=== PATIENT | female | born 1955 | race Caucasian/White ===

== ENCOUNTER 2023-11-14 14:58 | Outpatient (OUT) | payer MEDICARE, SELFPAY ==
--- NOTE | 2023-11-14 | XR_ITS ---
The [address] [address] Patient Name: WARREN SUMMERS MRN: [id number] date: 1955 Sex: F Assigned Patient Location: [facility] Current Patient Location: Accession/Order Number: [id number] Exam Date: 11/14/2023 15:14 Report Date: 11/15/2023 07:07 At the request of: MADDY BARBOSA Procedure: XR foot LT min 3V PROCEDURE: XR foot LT min 3V HISTORY: LEFT FOOT PAIN ; follow-up 5th metatarsal fracture COMPARISON: XR foot left 11/08/2023 FINDINGS: BONES:Oblique fracture of distal 5th metatarsal diaphysis with 2 mm dorsal medial displacement. No intra-articular extension. No visible callus formation at this time. SOFT TISSUES:Mild lateral soft tissue swelling. EFFUSION:None visible. OTHER: Negative. XR/XR foot LT min 3V IMPRESSION: 1. Mildly displaced acute/subacute fracture of 5th metatarsal diaphysis. No appreciable change. Electronically authenticated by: MARCIA LAMB Date: 11/15/2023 07:07
== END 2023-11-14 14:59 | disposition home or self-care (01) ==
PROVIDERS: PCP Family Medicine; Visit Provider Physician Assistant
DX: M79.672 Pain in left foot (principal); S92.352D Displaced fracture of fifth metatarsal bone, left foot, subsequent encounter for fracture with routine healing
CPT/HCPCS: 73630

== ENCOUNTER 2023-12-05 09:32 | Outpatient (OUT) | payer MEDICARE, SELFPAY ==
--- NOTE | 2023-12-05 | XR_ITS ---
The [address] [address] Patient Name: WARREN SUMMERS MRN: [id number] date: 1955 Sex: F Assigned Patient Location: Current Patient Location: Accession/Order Number: [id number] Exam Date: 12/05/2023 09:41 Report Date: 12/05/2023 10:54 At the request of: CARMEN SNOW Procedure: XR foot LT min 3V PROCEDURE: XR foot LT min 3V COMPARISON: 11/14/2023 HISTORY: LEFT FOOT PAIN FINDINGS: BONES:Again demonstrated is an oblique extra-articular displaced fracture involving the distal diaphysis of the fifth metatarsal. No interval bony bridging or significant periosteal reaction. No new fracture or dislocation. Moderate enthesopathic spurring plantar calcaneus SOFT TISSUES:Negative. No visible soft tissue swelling. EFFUSION:None visible. OTHER: Negative. XR/XR foot LT min 3V IMPRESSION: Stable extra-articular oblique displaced fracture of the fifth metatarsal with no interval bony bridging Electronically authenticated by: BRITANY RAAJN Date: 12/05/2023 10:54
== END 2023-12-05 09:33 | disposition home or self-care (01) ==
LOC: EC 09:32
PROVIDERS: PCP Family Medicine; Visit Provider Podiatrist Foot & Ankle Surgery
DX: S92.352A Displaced fracture of fifth metatarsal bone, left foot, initial encounter for closed fracture (principal)
CPT/HCPCS: 73630

== ENCOUNTER 2024-01-02 13:06 | Outpatient (OUT) | payer MEDICARE, SELFPAY ==
--- NOTE | 2024-01-02 | XR_ITS ---
The [address] [address] Patient Name: WARREN SUMMERS MRN: [id number] date: 1955 Sex: F Assigned Patient Location: Current Patient Location: Accession/Order Number: [id number] Exam Date: 01/02/2024 13:07 Report Date: 01/03/2024 07:28 At the request of: CARMEN SNOW Procedure: XR foot LT min 3V PROCEDURE: XR foot LT min 3V HISTORY: LEFT FOOT PAIN ; follow-up 5th metatarsal fracture. COMPARISON: None. FINDINGS: BONES:Oblique mildly displaced fracture of the 5th metatarsal distal diaphysis without appreciable increased density at fracture line or callus formation at the margins. SOFT TISSUES:Lateral soft tissue swelling. EFFUSION:None visible. OTHER: Negative. XR/XR foot LT min 3V IMPRESSION: 1. Stable, oblique mildly displaced 5th metatarsal fracture without radiographic evidence of early bone healing. Electronically authenticated by: MARCIA LAMB Date: 01/03/2024 07:28
--- OUTSIDE RECORDS SUMMARY | 2024-01-02 13:24 | XMS_ITS | CCD ---
Author Organization [facility] Care Team Providers Care Art Glass Designer Name Role Phone Kennedy Dodson Unavailable Unavailable Unavailable Kennedy Dodson Unavailable DO Kennedy Dodson Primary Care Provider [phone] MD Min Mitchell Attending Provider DO Kennedy Dodson Attending Provider DO Kennedy Dodson Primary Care Provider MD Min Mitchell Attending Provider DO Kennedy Dodson Attending Provider DO Veronica Koehler Attending Provider Gilberto Donovan Referring Unavailable Gilberto Donovan Attending Unavailable Dr. Kennedy Dodson Primary Care Unavaila ble DO Kennedy Dodson Primary Care Provider DO Kennedy Dodson Attending Provider VERONICA KOEHLER Attending Unavailable PRATIMA POOLE Attending Unavailable PRATIMA POOLE Attending Unavailable MD Pratima Poole Other Provider Kennedy Dodson Admitting Unavailable Kennedy Dodson Primary Care Unavailable Kennedy Dodson Attending Unavailable Pratima Poole Consulting Unavailable Kennedy Dodson Admitting Unavailable Kennedy Dodson Primary Care Unavailable Kennedy Dodson Attending Unavailable Veronica Koehler Attending Unavailable Kennedy Dodson Primary Care Unavailable Veronica Koehler Admitting Unavailable DO Kennedy Dodson Primary Care Provider DO Kennedy Dodson Attending Provider MD Pratima Poole Other Provider [phone] DO Veronica Koehler Attending Provider Medications Current Medications Medication Drug Class(es) Dates Sig (Normalized) Sig (Original) aspirin 81 mg delayed release oral tablet (19 sources) Platelet Aggregation Inhibitor, Nonsteroidal Anti-inflammatory Drug Start: 10-26-2022 take 1 tablet by mouth once daily Aspirin (Aspir-81) 81 mg Tablet,Delayed Release (Dr/Ec) Active 81 MG PO Daily October 26, 2022 1:00am take 1 tablet by rae th every twenty-four hours Aspirin 81 MG 1 tablet Orally Once a day Active take 1 tablet by mouth once eduardo y Aspirin EC 81 MG Oral Tablet Delayed Release TAKE 1 TABLET DAILY. Quantity: 90 Refills: 3 Ordered: 09-Dec-2021 DO Active atorvastatin 40 mg oral tablet (19 sources) HMG-CoA Reductase Inhibitor Start: 10-27-2021 take 40 mg by mouth once daily Atorvastatin Active 40 MG PO Daily October 26, 2022 1:00am azithromycin 250 mg oral tablet (2 sources) Macrolide Antimicrobial Start: 12-16-2022 Zithromax Z-Mahesh 250 MG as directed Orally as directed Dec, Active Calcium (6 sources) Phosphate Binder, Calcium Start: 10-26-2022 take 600 mg by mouth once daily Calcium Active 600 MG PO Daily October 26, 2022 1:00am Start: 10-26-2022 take 600 mg by mouth once eduardo y Calcium Active 600 MG PO Daily October 26, 2022 12:00am calcium carbonate 1500 mg oral tablet (8 sources) take 1 tablet by rae th every twelve hours Calcium 600 MG 1 tablet with meals Orally Twice a day Active take 1 tablet by mouth every twe lve hours Calcium 600 MG 1 tablet with meals Orally Twice a day Active Calcium 600 MG T ABS TAKE 1 TABLET DAILY. Quantity: 0 Refills: 0 Ordered: 09-Dec-2021 DO Active cefuroxime 250 mg oral tablet (1 source) Cephalosporin Antibacterial take 1 tablet by mouth every twelve hours Cefuroxime Axetil 250 MG 1 tablet Orally every 12 hrs Active cholecalciferol 0.125 mg oral tablet (17 sources) Vitamin D Start: 023 take 1 tablet by mouth once daily Cholecalciferol (Vitamin D3) (Vitamin D3) 125 mcg (5,000 unit) Tablet Active 125 MCG PO Daily October 26, 2022 1:00am take 1 capsule by [facility] every twenty-four hours Vitamin D3 125 MCG (5000 UT) 1 capsule Orally Once a day Active take 1 tablet by mouth once eduardo y Vitamin D-3 125 MCG (5000 UT) Oral Tablet Take 1 tablet daily Quantity: 0 Refills: 0 Ordered: 09-Dec-2021 DO Active Chondroitin Sulfates / Glucosamine (4 sources) take 1 capsule by mouth once daily at mealtime Glucosamine-Chondroitin 166.7-133.3 MG 1 capsule with meals Orally Once a day Active Co Q 10 100 MG (9 sources) Start: 09-16-2013 take 1 capsule by mouth once daily Co Q 10 100 MG 1 capsule with a meal Orally Once a day Sep, Active Start: 09-16-2013 Cranberry (14 sources) Non-Standardized Food Allergenic Extract, Non-Standardized Plant Allergenic Extract Start: 10-26-2022 take 500 mg by mouth three times daily at mealtime Cranberry Active 500 MG PO Three times daily October 26, 2022 1:00am administer with meals Start: 10-26-2022 take 500 mg by mouth three times daily at mealtime Cranberry Active 500 MG PO Three times daily October 26, 2022 12:00am administer with meals Cranberry 500 MG as directed Orally Active Cranberry 450 MG Oral Capsule TAKE DIRECTED. Quantity: 0 Refills: 0 Ordered: 09-Dec-2021 DO Active estradiol 0.5 mg oral tablet (19 sources) Estrogen Start: 10-19-2021 take 0.5 mg by mouth once daily Estradiol Active 0.5 MG PO Daily October 26, 2022 1:00am off 5 days; repeat cycle krill oil 500 mg oral capsule (14 sources) Start: 10-26-2022 take 500 mg by mouth once daily Krill Oil Active 500 MG PO Daily October 26, 2022 1:00am Magnesium (13 sources) Start: 10-26-2022 take 200 mg by mouth once daily Magnesium Active 200 MG PO Daily October 26, 2022 1:00am Start: 10-26-2022 take 200 mg by mouth once eduardo y Magnesium Active 200 MG PO Daily October 26, 2022 12:00am Magnesium 400 MG as directed Orally Active take 1 tablet by rae th once daily Magnesium 400 MG Oral Tablet Take 1 tablet daily Quantity: 0 Refills: 0 Ordered: 09-Dec-2021 DO Active medroxyPROGESTERone acetate 2.5 mg oral tablet (19 sources) Progestin Start: 10-19-2021 take 2.5 mg by mouth once daily Medroxyprogesterone Active 2.5 MG PO Daily October 26, 2022 1:00am Vpkzcrpbqpfc-Sp-Bijd-Mine rals (Women's Multiple Vitamins) 18-0.4 mg Tablet (6 sources) Start: 10-26-2022 take 1 tablet by mouth once daily Apxulqjnycqn-Ld-Qviv-Min erals (Women's Multiple Vitamins) 18-0.4 mg Tablet Active 1 TAB PO Daily October 26, 2022 1:00am Start: 10-26-2022 take 1 tablet by rae th once daily Jtaogxyeqgkn-Ho-Lawl-Minerals (Women's Multiple Vitamins) 18-0.4 mg Tablet Active 1 TAB PO Daily October 26, 2022 12:00am olmesartan medoxomil 20 mg oral tablet (19 sources) Angiotensin 2 Receptor Nettie Start: 05-14-2018 take 20 mg by mouth once daily Olmesartan Active 20 MG PO Daily October 26, 2022 1:00am Start: 05-14-2018 take 1 tablet by rae every twelve hours Olmesartan Medoxomil 20 MG 1 tablet Orally BID for 90 days May, Active predniSONE 20 mg oral tablet (2 sources) Start: 12-16-2022 predniSONE 20 MG 1 tablet Orally BID x 5 days then daily x 5 days Dec, Active semaglutide 3 mg oral tablet (1 source) Start: 11-08-2023 Rybelsus 3 MG 1 tablet at least 30 minutes before first food, beverage or other oral medicine of the day Orally Once a day for 30 days sample provided Oct, Active spironolactone 25 mg oral tablet (19 sources) Aldosterone Antagonist Start: 10-26-2022 take 25 mg by mouth once daily Spironolactone Active 25 MG PO Daily October 26, 2022 1:00am Start: 11-02-2021 take 1 tablet by rae th twice daily Spironolactone 25 MG Oral Tablet TAKE 1 TABLET TWICE DAILY. Quantity: 0 Refills: 0 Ordered: 02-Nov-2021 DO Start : 02-Nov-2021 Active take 2 tablets by mo ut every twenty-four hours Spironolactone 25 MG 2 tablet Orally Once a day Active take 2 tablets by mo [facility] every twenty-four hours ubidecarenone 200 mg oral ca psule (10 sources) Start: 10-26-2022 Coenzyme Q10 ( Co Q-10) 200 mg Capsule Active 200 MG PO Daily October 26, 2022 1:00am CoQ-10 200 MG CA PS TAKE DIRECTED. Quantity: 0 Refills: 0 Ordered: 09-Dec-2021 DO Active Vitamin B Complex (4 sources) Vitamin B Comple x - as directed Orally Active Vitamin D3 125 MCG (5000 UT) (2 sources) take 1 capsule by mo flh once daily Vitamin D3 125 MCG (5000 UT) 1 capsule Orally Once a day Active Womens Multivitamin - (4 sources) Womens Multivita min - as directed Orally Active Zinc (6 sources) Start: 10-26-2022 take 50 mg by mouth once daily Zinc Active 50 MG PO Daily October 26, 2022 1:00am Start: 10-26-2022 take 50 mg by mouth once daily Zinc Active 50 MG PO Daily October 26, 2022 12:00am zinc gluconate 50 mg oral tablet (8 sources) take 1 tablet by rae every twenty-four hours Zinc 50 MG 1 tablet Orally Once a day Active Completed/Discontinued Medications Medication Drug Class(es) Dates Sig (Normalized) Sig (Original) methylPREDNISolone (8 sources) Corticosteroid Start: 06-03-2014 SOLU-MEDROL UP TO 40 mg May, 1 mL Multi Vitamin Oral Tablet (4 sources) take 1 tablet by mouth once daily Multi Vitamin Oral Tablet TAKE 1 TABLET DAILY. Quantity: 0 Refills: 0 Ordered: 09-Dec-2021 DO Active Problems Active Problems Problem Classification Problem Date Documented Date Episodic/Chronic Asthma (9 sources) Asthma; Translations: [Unspecified asthma, uncomplicated] Chronic Diabetes mellitus without complication (2 sources) Diabetes mellitus without complication; Translations: [Type 2 diabetes mellitus without complications] Chronic Diabetes mellitus without complication (12 sources) Hyperglycemia; Translations: [Hyperglycemia, unspecified] Onset: 11-01-2023 Episodic Disorders of lipid metabolism (17 sources) Hyperlipidemia; Translations: [Other and unspecified hyperlipidemia] Onset: 10-27-2021 Resolved: 10-27-2021 Chronic Essential hypertension (17 sources) Hypertensive disorder; Translations: [Unspecified essential hypertension] Onset: 10-27-2021 Resolved: 10-27-2021 Chronic Nutritional deficiencies (12 sources) Vitamin D deficiency; Translations: [Vitamin D deficiency, unspecified] Onset: 10-27-2021 Resolved: 10-27-2021 Chronic Other connective tissue disease (1 source) Pain in right foot; Translations: [Pain in right foot] Episodic Other connective tissue disease (1 source) Pain in left foot Episodic Other diseases of veins and lymphatics (9 sources) Peripheral venous insufficiency; Translations: [Venous insufficiency (chronic) (peripheral)] Episodic Other endocrine disorders (9 sources) Polycystic ovaries; Translations: [Polycystic ovarian syndrome] Chronic Other nutritional; endocrine; and metabolic disorders (4 sources) Obesity; Translations: [Obesity, unspecified] Chronic Other nutritional; endocrine; and metabolic disorders (4 sources) Body mass index 25-29 - overweight; Translations: [Body Mass Index 29.0-29.9, adult] Episodic Other screening for suspected conditions (not mental disorders or infectious disease) (15 sources) Electrocardiogram abnormal; Translations: [Nonspecific abnormal electrocardiogram [ECG] [EKG]] Onset: 10-27-2021 Resolved: 10-27-2021 Episodic Unclassified (1 source) Pain in left foot; Translations: [Pain in left foot] Onset: 11-08-2023 Varicose veins of lower extremity (9 sources) Pain co-occurrent and due to varicose veins of bilateral legs; Translations: [Varicose veins of bilateral lower extremities with pain] Episodic Past or Other Problems Problem Classification Problem Date Documented Da te Episodic/Chronic Unclassified (4 sources) Never smoked tobacco; Translations: [Never a smoker] Results Test Name Value Interpretation Reference Range Facility MM screening mammo BI w/CADo n 01-01-2024 MM screening mammo BI w/CAD [facility] Main [place] [id number] Mammography Report Signed Patient: Betsy Summers MR#: [id number] : 1955 Acct:[id number] Age/Sex: 68 / F ADM Date: 01/01/24 Loc: [place] Room: Type: [facility] Attending Dr: Veronica Koehler DO Copies to: Kennedy Dodson,DO Veronica Koehler DO Ordering Provider: Veronica Koehler DO Date of Service: 01/01/24 MM/MM screening mammo BI w/CAD: SCREENING CLINICAL DATA: Screening for malignancy. BILATERAL SCREENING MAMMOGRAMS - FULL FIELD DIGITAL WITH TOMOSYNTHESIS AND CAD Tomosynthesis craniocaudal and mediolateral oblique views of both breasts were obtained using low- dose digital technique. Comparison is made to prior studies from November 04, 2019 through December 27, 2022. This examination was reviewed with the aid of CAD. There are scattered fibroglandular densities. There are benign calcifications and nodularity. There are no new suspicious masses, typically malignant calcifications or architectural distortion. There has been no significant interval change. MM/MM screening mammo BI w/CAD IMPRESSION: NO MAMMOGRAPHIC EVIDENCE OF MALIGNANCY. ROUTINE FOLLOW-UP IS RECOMMENDED IN ONE YEAR. RESULT CODE: 2 Benign Findings(s) DENSITY CODE: 2 (approximately 25-50% glandular) FOLLOW UP: 1YR The false-negative rate of mammography is approximately 10-percent. Management of a palpable abnormality must be based on clinical grounds. Patient was entered into a reminder system with a target due date for the next mammogram. Impression dictated by: Gisela Whittaker M.D.01/01/2024 1:31 PM Dictation Location: [facility] Transcribed By: HYUN 01/01/24 1331 Dictated By: Gisela Whittaker MD 01/01/24 1324 Signed By: 01/01/24 1331 Normal [facility] A1C HEMOGLOBINon 11-08-2023 HbA1c (Bld) [Mass fraction] 6.7 % [employer] Other HbA1c (Bld) [Mass fraction]o n 11-08-2023 A1C [facility]OGLOBIN [facility] [employer] Other XR foot LT min 3V*on 024 XR foot LT min 3V* [facility] [place] [address] XRay Report Signed Patient: Betsy Summers MR#: [id number] : 1955 Acct:[id number] Age/Sex: 68 / F ADM Date: 11/08/23 Loc: XD Room: Type: [facility] CLI Attending Dr: Kennedy Dodson DO Copies to: Kennedy Dodson DO Ordering Provider: Kennedy Dodson DO Date of Service: 11/08/23 XR/XR ankle LT min 3V*: Left foot pain ([id number]) XR/XR foot LT min 3V*: Left foot pain LEFT ANKLE - 3 views, left foot 3 views CLINICAL HISTORY: Twisting injury 3 weeks ago now with pain fourth and fifth metatarsal area. COMPARISON: None FINDINGS: Left ankle: No focal soft tissue abnormality. Ankle mortise appears intact without acute bony process. Left foot: Soft tissue swelling is noted. Mildly displaced fracture involving the fifth metatarsal. No additional fracture is seen. Joint spaces appear maintained without bony erosions. Plantar spurring. XR/XR ankle LT min 3V* IMPRESSION: MILDLY DISPLACED FRACTURE INVOLVING THE FIFTH METATARSAL. Impression dictated by: Kathrine Moura Jr.OLeon11/08/2023 10:17 AM Dictation Location: [place] [address] Transcribed By: [facility] 11/08/23 1017 Dictated By: Kaushal Fox Jr, DO 11/08/23 1015 Signed By: 11/08/23 1017 Normal [facility] A1C with Estimated Average G [facility] 11-01-2023 Glucose [Mass/Vol] 131 mg/dL Normal [facility] Comment on above: Order Comment: Reaso n for Exam Hyperglycemia Result Comment: PERF ORMED BY: [place] [address] PATHOLOGIST PREMIUM REPRESENTATIVE ANASTASIIA BLUE M.D. Performed By: #### V [id number], TSH3, LIPID, CMP, CBC, A1C WT eA #### [address] HbA1c (Bld) [Mass fraction] 6.2 % High 4.3-5.6 [facility] Comment on above: Order Comment: Reaso n for Exam Hyperglycemia Result Comment: Incr eased risk for diabetes: 5.7 - 6.4 diabetes: >6.4 glycemic control for adults with diabetes: <7.0 Performed By: #### V [id number], TSH3, LIPID, CMP, CBC, [facility]C [facility] #### [facility] [address] Alanine aminotransferase [En zymatic activity/volume] in Serum or PlasmaOrdered By: Kennedy Dodson on 11-01-2023 ALT [Catalytic activity/Vol] 18 U/L 7-52 [facility] Albumin [Mass/volume] in Ser um or Plasma by Bromocresol green (BCG) dye binding methoOrdered By: Kennedy Dodson on 11-01-2023 Albumin BCG dye [Mass/Vol] 4.1 g/dL 3.5-5.7 [facility] Alkaline phosphatase [Enzyma tic activity/volume] in Serum or PlasmaOrdered By: Kennedy Dodson on 11-01-2023 ALP [Catalytic activity/Vol] 66 U/L 34-104 [facility] Aspartate aminotransferase [ Enzymatic activity/volume] in Serum or PlasmaOrdered By: Kennedy Dodson on 11-01-2023 AST [Catalytic activity/Vol] 19 U/L 13-39 [facility] Basophils Auto (Bld) [#/Vol] Ordered By: Kennedy Dodson on 11-01-2023 Basophils (Bld) [#/Vol] 0.0 10*3/uL 0.0-0.2 [facility] Basophils/100 WBC Auto (Bld) Ordered By: Kennedy Dodson on 11-01-2023 Basophils/100 WBC (Bld) 0.6 % . [facility] Bilirubin.total [Mass/volume ] in Serum or PlasmaOrdered By: Kennedy Dodson on 11-01-2023 Bilirubin [Mass/Vol] 0.7 mg/dL 0.3-1.0 [facility] [place] Calcium [Mass/volume] in Ser um or PlasmaOrdered By: Kennedy Dodson on 11-01-2023 Calcium [Mass/Vol] 9.2 mg/dL 8.6-10.3 [facility] Carbon dioxide, total [Moles /volume] in Serum or PlasmaOrdered By: Kennedy Dodson on 11-01-2023 CO2 [Moles/Vol] 26.2 mmol/L 21.0-31.0 [facility] Chloride [Moles/volume] in S renee or PlasmaOrdered By: Kennedy Dodson on 11-01-2023 Chloride [Moles/Vol] 106 mmol/L 98-107 [facility] [place] Cholesterol [Mass/volume] in Serum or PlasmaOrdered By: Kennedy Dodson on 11-01-2023 Cholesterol [Mass/Vol] 159 mg/dL 140-200 [facility] Comment on above: Chol less than 200 m g/dl low riskChol 201-239 mg/dl borderline riskChol 240 mg/dl and greater high risk Cholesterol in LDL Calc [Mas s/Vol]Ordered By: Kennedy Dodson on 11-01-2023 Cholesterol in LDL [Mass/Vol] 98 mg/dL 0-100 [facility] Comment on above: LDL ATP III CLASSIFI CATIONLDL less than 100 mg/dL OptimalLDL 100-129 mg/dL Near or above optimalLDL 130-159 mg/dL Borderline highLDL 160-189 mg/dL HighLDL greater than 189 mg/dL Very high Cholesterol in VLDL Calc [Ma ss/Vol]Ordered By: Kennedy Dodson on 11-01-2023 Cholesterol in VLDL [Mass/Vol] 10 mg/dL [facility] Complete Blood Count Auto Di ffon 11-01-2023 Basophils (Bld) [#/Vol] 0.0 10*3/uL Normal 0.0-0.2 [facility] Comment on above: Order Comment: Reaso n for Exam Hyperlipidemia Result Comment: PERF ORMED BY: [place] [address] PATHOLOGIST PREMIUM REPRESENTATIVE ANASTASIIA BLUE M.D. Performed By: #### V [id number], TSH3, LIPID, CMP, CBC, A1C [facility] #### [facility] [address] Basophils/100 WBC (Bld) 0.6 % Normal . [facility] Comment on above: Order Comment: Reaso n for Exam Hyperlipidemia Performed By: #### V [id number], TSH3, LIPID, CMP, CBC, A1C WTH eA #### [facility] [address] Eosinophils (Bld) [#/Vol] 0.2 10*3/uL Normal 0.0-0.45 [facility] Comment on above: Order Comment: Reaso n for Exam Hyperlipidemia Performed By: #### V [id number], TSH3, LIPID, CMP, CBC, A1C WTH eA #### [facility] [address] [place] [address] [place] Eosinophils/100 WBC (Bld) 2.6 % Normal . [facility] Comment on above: Order Comment: Reaso n for Exam Hyperlipidemia Performed By: #### V [id number], TSH3, LIPID, CMP, CBC, A1C WTH eA #### [address] Erythrocyte distribution width (RBC) [Ratio] 13.3 % Normal 11.9-15.3 [facility] Comment on above: Order Comment: Reaso n for Exam Hyperlipidemia Performed By: #### V [id number], TSH3, LIPID, CMP, CBC, A1C WTH eA #### [address] Hematocrit (Bld) [Volume fraction] 40.7 % Normal 34.0-46.4 [facility] Comment on above: Order Comment: Reaso n for Exam Hyperlipidemia Performed By: #### V [id number], TSH3, LIPID, CMP, CBC, A1C WTH eA #### [facility] [address] Hemoglobin (Bld) [Mass/Vol] 13.7 g/dL Normal 11.8-15.4 [facility] Comment on above: Order Comment: Reaso n for Exam Hyperlipidemia Performed By: #### V [id number], TSH3, LIPID, CMP, CBC, A1C WTH eA #### [address] Lymphocytes (Bld) [#/Vol] 1.6 10*3/uL Normal 1.00-4.8 [facility] Comment on above: Order Comment: Reaso n for Exam Hyperlipidemia Performed By: #### V [id number], TSH3, LIPID, CMP, CBC, A1C WTH eA #### [facility] [address] [place] [address] Lymphocytes/100 WBC (Bld) 21.6 % Normal . [facility] Comment on above: Order Comment: Reaso n for Exam Hyperlipidemia Performed By: #### V [id number], TSH3, LIPID, CMP, CBC, A1C WTH eA #### [address] MCH (RBC) [Entitic mass] 32.0 pg Normal 24.7-34.3 [facility] Comment on above: Order Comment: Reaso n for Exam Hyperlipidemia Performed By: #### V [id number], TSH3, LIPID, CMP, CBC, A1C WTH eA #### [address] MCV (RBC) [Entitic vol] 94.8 fL Normal 80-100 [facility] Comment on above: Order Comment: Reaso n for Exam Hyperlipidemia Performed By: #### V [id number], TSH3, LIPID, CMP, CBC, A1C WTH eA #### [facility] [address] [place] [address] Mean Corpuscular HGB Conc 33.8 g/dL Normal 32.0-35.0 [facility] Comment on above: Order Comment: Reaso n for Exam Hyperlipidemia Performed By: #### V [id number], TSH3, LIPID, CMP, CBC, A1C WTH e[place] #### [place] [address] [place] Monocytes (Bld) [#/Vol] 0.8 10*3/uL Normal 0.0-0.8 [facility] Comment on above: Order Comment: Reaso n for Exam Hyperlipidemia Performed By: #### V [id number], TSH3, LIPID, CMP, CBC, A1C WTH eA #### [address] Monocytes/100 WBC (Bld) 10.0 % Normal . [facility] Comment on above: Order Comment: Reaso n for Exam Hyperlipidemia Performed By: #### V [id number], TSH3, LIPID, CMP, CBC, A1C WTH eA #### [facility] [address] [place] [address] [place] Neutrophils (Bld) [#/Vol] 5.0 10*3/uL Normal 1.8-7.7 [facility] Comment on above: Order Comment: Reaso n for Exam Hyperlipidemia Performed By: #### V [id number], TSH3, LIPID, CMP, CBC, A1C WTH eA #### [facility] [address] [place] [address] [place] Neutrophils/100 WBC (Bld) 65.2 % Normal . [facility] Comment on above: Order Comment: Reaso n for Exam Hyperlipidemia Performed By: #### V [id number], TSH3, LIPID, CMP, CBC, A1C WTH eA #### [facility] [address] [place] [address] [place] NRBC% 0.0 /100{WBC} Normal 0-0.5 [facility] Comment on above: Order Comment: Reaso n for Exam Hyperlipidemia Performed By: #### V [id number], TSH3, LIPID, CMP, CBC, A1C WTH eA #### [facility] [address] [place] [address] [place] Platelet mean volume (Bld) [Entitic vol] 10.7 fL Normal 6.3-10.7 [facility] Comment on above: Order Comment: Reaso n for Exam Hyperlipidemia Performed By: #### V [id number], TSH3, LIPID, CMP, CBC, A1C WTH eA #### [facility] [address] [place] [id number] [place] Platelets (Bld) [#/Vol] 208 10*3/uL Normal 150-450 [facility] Comment on above: Order Comment: Reaso n for Exam Hyperlipidemia Performed By: #### V [id number], TSH3, LIPID, CMP, CBC, A1C WTH eA #### [facility] [address] [place] [id number] [place] RBC (Bld) [#/Vol] 4.29 10*6/uL Normal 3.60-5.00 [facility] Comment on above: Order Comment: Reaso n for Exam Hyperlipidemia Performed By: #### V [id number], TSH3, LIPID, CMP, CBC, A1C WTH eA #### [facility] [address] WBC (Bld) [#/Vol] 7.6 10*3/uL Normal 3.8-11.6 [facility] Comment on above: Order Comment: Reaso n for Exam Hyperlipidemia Performed By: #### V [id number], TSH3, LIPID, CMP, CBC, A1C WTH eA #### [facility] [address] Comprehensive Metabolic Pane risa 11-01-2023 Albumin [Mass/Vol] 4.1 g/dL Normal 3.5-5.7 [facility] Comment on above: Order Comment: Reaso n for Exam Hyperlipidemia Performed By: #### V [id number], TSH3, LIPID, CMP, CBC, A1C WTH eA #### [facility] [address] [place] [address] Albumin/Globulin [Mass ratio] 1.5 {ratio} Normal [facility] Comment on above: Order Comment: Reaso n for Exam Hyperlipidemia Performed By: #### V [id number], TSH3, LIPID, CMP, CBC, A1C WTH eA #### [address] ALP [Catalytic activity/Vol] 66 U/L Normal 34-104 [facility] Comment on above: Order Comment: Reaso n for Exam Hyperlipidemia Result Comment: PERF ORMED BY: [place] [address] PATHOLOGIST PREMIUM REPRESENTATIVE ANASTASIIA BLUE M.D. Performed By: #### V [id number], TSH3, LIPID, CMP, CBC, A1C WTH eA #### [facility] [address] [place] [address] ALT [Catalytic activity/Vol] 18 U/L Normal 7-52 [facility] Comment on above: Order Comment: Reaso n for Exam Hyperlipidemia Performed By: #### V [id number], TSH3, LIPID, CMP, CBC, A1C WTH eA #### [facility] [address] Anion gap [Moles/Vol] 11.3 mmol/L Normal 6.0-15.0 [facility] Comment on above: Order Comment: Reaso n for Exam Hyperlipidemia Performed By: #### V [id number], TSH3, LIPID, CMP, CBC, A1C WTH eA #### [facility] [address] AST [Catalytic activity/Vol] 19 U/L Normal 13-39 [facility] Comment on above: Order Comment: Reaso n for Exam Hyperlipidemia Performed By: #### V [id number], TSH3, LIPID, CMP, CBC, A1C WTH eA #### [facility] [address] Bilirubin [Mass/Vol] 0.7 mg/dL Normal 0.3-1.0 [facility] [place] Comment on above: Order Comment: Reaso n for Exam Hyperlipidemia Performed By: #### V [id number], TSH3, LIPID, CMP, CBC, A1C WTH eA #### [facility] [address] [place] [address] [place] Calcium [Mass/Vol] 9.2 mg/dL Normal 8.6-10.3 [facility] Comment on above: Order Comment: Reaso n for Exam Hyperlipidemia Performed By: #### V [id number], TSH3, LIPID, CMP, CBC, A1C WTH eA #### [facility] [address] [place] [address] [place] Chloride [Moles/Vol] 106 mmol/L Normal 98-107 [facility] [place] Comment on above: Order Comment: Reaso n for Exam Hyperlipidemia Performed By: #### V [id number], TSH3, LIPID, CMP, CBC, A1C WTH eA #### [facility] [address] CO2 [Moles/Vol] 26.2 mmol/L Normal 21.0-31.0 [facility] Comment on above: Order Comment: Reaso n for Exam Hyperlipidemia Performed By: #### V [id number], TSH3, LIPID, CMP, CBC, A1C WTH eA #### [facility] [address] Creatinine [Mass/Vol] 0.86 mg/dL Normal 0.60-1.20 [facility] Comment on above: Order Comment: Reaso n for Exam Hyperlipidemia Performed By: #### V [id number], TSH3, LIPID, CMP, CBC, A1C WTH eA #### [facility] [address] [place] [address] [place] GFR/1.73 sq M.predicted MDRD (S/P/Bld) [Vol rate/Area] mL/min/{1.73_m2} [facility] Comment on above: Order Comment: Reaso n for Exam Hyperlipidemia Performed By: #### V [id number], TSH3, LIPID, CMP, CBC, A1C WTH eA #### [facility] [address] Globulin (S) [Mass/Vol] 2.7 g/dL Normal [facility] Comment on above: Order Comment: Reaso n for Exam Hyperlipidemia Performed By: #### V [id number], TSH3, LIPID, CMP, CBC, A1C WTH eA #### [address] Glucose [Mass/Vol] 100 mg/dL Normal 70-100 [facility] Comment on above: Order Comment: Reaso n for Exam Hyperlipidemia Result Comment: [place] Glucose Reference Range is dependent on time and content of last meal. Glucose of more than 200 mg/dL in a nonstressed, ambulatory subject supports the diagnosis of Diabetes Mellitus. ADA recommended reference range Performed By: #### V [id number], TSH3, LIPID, CMP, CBC, A1C WTH eA #### [facility] [address] [place] [address] [place] Potassium [Moles/Vol] 4.5 mmol/L Normal 3.5-5.1 [facility] Comment on above: Order Comment: Reaso n for Exam Hyperlipidemia Performed By: #### V [id number], TSH3, LIPID, CMP, CBC, A1C WTH eA #### [facility] [address] [place] [id number] [place] Protein [Mass/Vol] 6.8 g/dL Normal 6.4-8.9 [facility] Comment on above: Order Comment: Reaso n for Exam Hyperlipidemia Performed By: #### V [id number], TSH3, LIPID, CMP, CBC, A1C WTH eA #### [facility] [address] [place] [id number] [place] Sodium [Moles/Vol] 139 mmol/L Normal 136-145 [facility] Comment on above: Order Comment: Reaso n for Exam Hyperlipidemia Performed By: #### V [id number], TSH3, LIPID, CMP, CBC, A1C WT eA #### [facility] [address] [place] [address] [place] Urea nitrogen [Mass/Vol] 24 mg/dL Normal 7-25 [facility] Comment on above: Order Comment: Reaso n for Exam Hyperlipidemia Performed By: #### V [id number], TSH3, LIPID, CMP, CBC, A1C WTH eA #### [facility] [address] [place] [address] [place] Creatinine [Mass/volume] in Serum or PlasmaOrdered By: Kennedy Dodson on 11-01-2023 Creatinine [Mass/Vol] 0.86 mg/dL 0.60-1.20 [facility] Eosinophils Auto (Bld) [#/Vo l]Ordered By: Kennedy Dodson on 11-01-2023 Eosinophils (Bld) [#/Vol] 0.2 10*3/uL 0.0-0.45 [facility] Eosinophils/100 WBC Auto (Bl d)Ordered By: Kennedy Dodson on 11-01-2023 Eosinophils/100 WBC (Bld) 2.6 % . [facility] Erythrocyte distribution wid th Auto (RBC) [Ratio]Ordered By: Kennedy Dodson on 11-01-2023 Erythrocyte distribution width (RBC) [Ratio] 13.3 % 11.9-15.3 [facility] Globulin Calc (S) [Mass/Vol] Ordered By: Kennedy Dodson on 11-01-2023 Globulin (S) [Mass/Vol] 2.7 g/dL [facility] Glucose [Mass/volume] in Ser um or PlasmaOrdered By: Kennedy Dodson on 11-01-2023 Glucose [Mass/Vol] 100 mg/dL 70-100 [facility] Comment on above: ADA recommended refe rence rangeRandom Glucose Reference Range is dependent on time and content of last meal. Glucose of more than 200 mg/dL in a nonstressed, ambulatory subject supports the diagnosis of Diabetes Mellitus. Glucose mean value [Mass/vol ume] in Blood Estimated from glycated hemoglobinOrdered By: Kennedy Dodson on 11-01-2023 Average glucose Estimated from glycated hemoglobin (Bld) [Mass/Vol] 131 mg/dL [facility] Hematocrit Auto (Bld) [Volum e fraction]Ordered By: Kennedy Dodson on 11-01-2023 Hematocrit (Bld) [Volume fraction] 40.7 % 34.0-46.4 [facility] Hemoglobin A1c percentageOrd ered By: Kennedy Dodson on 11-01-2023 HbA1c (Bld) [Mass fraction] 6.2 % 4.3-5.6 [facility] Comment on above: Increased risk for d iabetes: 5.7 - 6.4diabetes: >6.4glycemic control for adults with diabetes: <7.0 Hemoglobin [Mass/volume] in BloodOrdered By: Kennedy Dodson on 11-01-2023 Hemoglobin (Bld) [Mass/Vol] 13.7 g/dL 11.8-15.4 [facility] Leukocytes [#/volume] correc magdaleno for nucleated erythrocytes in Blood by Automated counOrdered By: Kennedy Dodson on 11-01-2023 WBC corrected for nucl RBC Auto (Bld) [#/Vol] 7.6 10*3/uL 3.8-11.6 [facility] Lipid Panelon 11-01-2023 Cholesterol [Mass/Vol] 159 mg/dL Normal 140-200 [facility] Comment on above: Order Comment: Reaso n for Exam Hyperlipidemia Reason for Exam Vitamin D deficiency Result Comment: Chol less than 200 mg/dl low risk Chol 201-239 mg/dl borderline risk Chol 240 mg/dl and greater high risk Performed By: #### V [id number], TSH3, LIPID, CMP, CBC, A1C WTH eA #### [facility] [address] [place] [id number] [facility] Cholesterol in HDL [Mass/Vol] 50 mg/dL Normal 23-92 [facility] Comment on above: Order Comment: Reaso n for Exam Hyperlipidemia Reason for Exam Vitamin D deficiency Result Comment: HDL CHOL ATP-III CLASSIFICATION Cardiovascular Risk HDL > or equal to 60 mg/dL LOW HDL < 40 mg/dL HIGH Performed By: #### V [id number], TSH3, LIPID, CMP, CBC, A1C WTH eA #### [facility] [address] Cholesterol.total/Shy sterol in HDL [Mass ratio] 3.2 {ratio} Normal <5.0 [facility] Comment on above: Order Comment: Reaso n for Exam Hyperlipidemia Reason for Exam Vitamin D deficiency Performed By: #### V [id number], TSH3, LIPID, CMP, CBC, A1C WTH eA #### [facility] [address] LDL Cholesterol,Calculated 98 mg/dL Normal 0-100 [facility] Comment on above: Order Comment: Reaso n for Exam Hyperlipidemia Reason for Exam Vitamin D deficiency Result Comment: LDL ATP III CLASSIFICATION LDL less than 100 mg/dL Optimal LDL 100-129 mg/dL Near or above optimal LDL 130-159 mg/dL Borderline high LDL 160-189 mg/dL High LDL greater than 189 mg/dL Very high Performed By: #### V [id number], TSH3, LIPID, CMP, CBC, A1C WTH eA #### [facility] [address] Triglyceride w/Reflex 53 mg/dL Normal 0-149 [facility] Comment on above: Order Comment: Reaso n for Exam Hyperlipidemia Reason for Exam Vitamin D deficiency Result Comment: TRIG ATP III CLASSIFICATION TRIG less than 150 mg/dL Normal TRIG 150-199 mg/dL Borderline high TRIG 200-500 mg/dL High TRIG greater than 500 mg/dL Very high Standard traceable to the Center for Disease Conrtrol and Prevention (CDC) test method. Performed By: #### V [id number], TSH3, LIPID, CMP, CBC, A1C WTH eA #### [facility] [address] [place] [id number] [facility] VLDL CHOLESTEROL 10 mg/dL Normal [facility] Comment on above: Order Comment: Reaso n for Exam Hyperlipidemia Reason for Exam Vitamin D deficiency Performed By: #### V [id number], TSH3, LIPID, CMP, CBC, A1C WTH eA #### [facility] [address] [place] [id number] [facility] Lymphocytes Auto (Bld) [#/Vo l]Ordered By: Kennedy Dodson on 11-01-2023 Lymphocytes (Bld) [#/Vol] 1.6 10*3/uL 1.00-4.8 [facility] Lymphocytes/100 WBC Auto (Bl d)Ordered By: Kennedy Dodson on 11-01-2023 Lymphocytes/100 WBC (Bld) 21.6 % . [facility] MCH Auto (RBC) [Entitic mass ]Ordered By: Kennedy Dodson on 11-01-2023 MCH (RBC) [Entitic mass] 32.0 pg 24.7-34.3 [facility] MCHC Auto (RBC) [Mass/Vol]Or dered By: Kennedy Dodson on 11-01-2023 MCHC (RBC) [Mass/Vol] 33.8 g/dL 32.0-35.0 [facility] MCV Auto (RBC) [Entitic vol] Ordered By: Kennedy Dodson on 11-01-2023 MCV (RBC) [Entitic vol] 94.8 fL 80-100 [facility] Monocytes Auto (Bld) [#/Vol] Ordered By: Kennedy Dodson on 11-01-2023 Monocytes (Bld) [#/Vol] 0.8 10*3/uL 0.0-0.8 [facility] Monocytes/100 WBC Auto (Bld) Ordered By: Kennedy Dodson on 11-01-2023 Monocytes/100 WBC (Bld) 10.0 % . [facility] Neutrophils Auto (Bld) [#/Vo l]Ordered By: Kennedy Dodson on 11-01-2023 Neutrophils (Bld) [#/Vol] 5.0 10*3/uL 1.8-7.7 [facility] Neutrophils/100 WBC Auto (Bl d)Ordered By: Kennedy Dodson on 11-01-2023 Neutrophils/100 WBC (Bld) 65.2 % . [facility] No Panel InformationOrdered By: Kenendy Dodson on 11-01-2023 Estimated GFR (CKD-EPI) > 60.0 mL/Min [facility] Creatinine Clearance (Chem N/A [facility] Nucleated erythrocytes [Pres ence] in Blood by Automated countOrdered By: Kennedy Dodson on 11-01-2023 Nucleated RBC Auto Ql (Bld) 0.0 /100{WBC} 0-0.5 [facility] Platelet mean volume Auto (B ld) [Entitic vol]Ordered By: Kennedy Dodson on 11-01-2023 Platelet mean volume (Bld) [Entitic vol] 10.7 fL 6.3-10.7 [facility] Platelets Auto (Bld) [#/Vol] Ordered By: Kennedy Dodson on 11-01-2023 Platelets (Bld) [#/Vol] 208 10*3/uL 150-450 [facility] Potassium [Moles/volume] in Serum or PlasmaOrdered By: Kennedy Dodson on 11-01-2023 Potassium [Moles/Vol] 4.5 mmol/L 3.5-5.1 [facility] Protein [Mass/volume] in Ser um or PlasmaOrdered By: Kennedy Dodson on 11-01-2023 Protein [Mass/Vol] 6.8 g/dL 6.4-8.9 [facility] RBC Auto (Bld) [#/Vol]Ordere d By: Kennedy Dodson on 11-01-2023 RBC (Bld) [#/Vol] 4.29 10*6/uL 3.60-5.00 [facility] Serum or plasma albumin/glob ulin mass ratioOrdered By: Kennedy Dodson on 11-01-2023 Albumin/Globulin [Mass ratio] 1.5 {ratio} [facility] Serum or plasma anion gap de terminationOrdered By: Kennedy Dodson on 11-01-2023 Anion gap [Moles/Vol] 11.3 mmol/L 6.0-15.0 [facility] Serum or plasma high density lipoprotein (HDL) cholesterol measurementOrdered By: Kennedy Dodson on 11-01-2023 Cholesterol in HDL [Mass/Vol] 50 mg/dL 23- [facility] Comment on above: HDL CHOL ATP-III CLA SSIFICATION Cardiovascular RiskHDL > or equal to 60 mg/dL LOWHDL < 40 mg/dL HIGH Serum or plasma total choles terol/high density lipoprotein (HDL) cholesterol mass ratOrdered By: Kennedy Dodson on 11-01-2023 Cholesterol.total/Shy sterol in HDL [Mass ratio] 3.2 {ratio} <5.0 [facility] Sodium [Moles/volume] in Ser um or PlasmaOrdered By: Kennedy Dodson on 11-01-2023 Sodium [Moles/Vol] 139 mmol/L 136-145 [facility] Thyroid Stimulating Hormoneo n 11-01-2023 TSH Qn 0.94 m[IU]/L Normal 0.45-5.33 [facility] Comment on above: Order Comment: Reaso n for Exam Hyperlipidemia Reason for Exam Vitamin D deficiency Performed By: #### V [id number], TSH3, LIPID, CMP, CBC, [facility]C [facility] #### [facility] [address] Thyrotropin [Units/volume] i n Serum or PlasmaOrdered By: Kennedy Dodson on 11-01-2023 TSH Qn 0.94 m[IU]/L 0.45-5.33 [facility] Triglyceride [Mass/volume] i n Serum or PlasmaOrdered By: Kennedy Dodson on 11-01-2023 Triglyceride [Mass/Vol] 53 mg/dL 0-149 [facility] Comment on above: TRIG ATP III CLASSIF ICATIONTRIG less than 150 mg/dL NormalTRIG 150-199 mg/dL Borderline highTRIG 200-500 mg/dL High TRIG greater than 500 mg/dL Very highStandard traceable to the Center for Disease Conrtrol and Prevention (CDC) test method. Urea nitrogen [Mass/volume] in Serum or PlasmaOrdered By: Kennedy Dodson on 11-01-2023 Urea nitrogen [Mass/Vol] 24 mg/dL 7-25 [facility] Vitamin D 25 Hydroxy Totalon 11-01-2023 Vitamin D 25 Hydroxy Total 68.8 ng/mL Normal 30-100 [facility] Comment on above: Order Comment: Reaso n for Exam Hyperlipidemia Reason for Exam Vitamin D deficiency Result Comment: MAYELA MIN D STATUS 25(OH)VITAMIN D RANGE (ng/mL) Deficient <20 Insufficient 20 to <30 Sufficient 30 to 100 Reference: Libby Clay, Mary GAFFENY, et al. Evaluation,treatment, and prevention of vitamin D deficiency; an Endocrine Society clinical practice guideline. JCEM. 2010; 96(7):1911-. PERFORMED BY: [place] [address] PATHOLOGIST PREMIUM REPRESENTATIVE ANASTASIIA BLUE M.D. Performed By: #### V [id number], TSH3, LIPID, CMP, CBC, A1C WTH eA #### [facility] [address] Vitamin D+Metabolites [Mass/ volume] in Serum or PlasmaOrdered By: Kennedy Dodson on 11-01-2023 Vitamin D+Metabolites [Mass/Vol] 68.8 ng/mL 30-100 [facility] Comment on above: VITAMIN D STATUS 25( [place])VITAMIN D RANGE (ng/mL) Deficient <20 Insufficient 20 to <30Sufficient 30 to 100Reference: Libby Clay, Mary GAFFNEY, et al. Evaluation,treatment, and prevention of vitamin D deficiency; an Endocrine Society clinical practice guideline. JCEM. 2010; 96(7):1911-. WBC Auto (Bld) [#/Vol]Ordere d By: Kennedy Dodson on 11-01-2023 WBC (Bld) [#/Vol] 7.6 10*3/uL 3.8-11.6 [facility] Office Visit (Cardiology)on 01-31-2023 Follow-up visit Diagnoses/Problems Assessed Hypertension (401.9) (I10) Abnormal electrocardiogram (794.31) (R94.31) Hyperlipidemia (272.4) (E78.5) Class 1 obesity with body mass index (BMI) of 30.0 to 30.9 in adult (278.00,V85.30) (E66.9,Z68.30) Never a smoker Orders Abnormal electrocardiogram, Hyperlipidemia, Hypertension Renew: Aspirin EC 81 MG Oral Tablet Delayed Release; TAKE 1 TABLET DAILY Class 1 obesity with body mass index (BMI) of 30.0 to 30.9 in adult Healthy Weight Tips; Status:Complete - Retrospective Authorization; Done: [id number] Some eating tips that can help you lose weight.; Status:Complete - Retrospective Authorization; Done: [id number] SocHx: Never a smoker Tobacco Use Screening; Status:Complete; Done: [id number] Patient Instructions Please bring all medicines, vitamins, and herbal supplements with you when you come to the office. Prescriptions will not be filled unless you are compliant with your follow up appointments or have a follow up appointment scheduled as per instruction of your physician. Refills should be requested at the time of your visit. Follow up in 10 months The provider reviewed the following test(s) and result(s) with the patient: laboratory tests Chief Complaint BETSY SUMMERS is being seen for an annual follow-up of. History of Present Illness Patient is here for follow-up and management for recent evaluation of abnormal EKG, hypertension and hyperlipidemia. Since last time I saw her she reports she is feeling well. She denies complaint of chest pain, palpitation, lightheadedness, dizziness or syncope. Her recent stress test and lab work all noted and reviewed with her. ASSESSMENT: 1. Abnormal EKG showing nonspecific ST-T changes I suspect due to hypertension. Since stress test negative 2. Hypertension, controlled on current medical therapy 3. Hyperlipidemia. Recent labs reviewed. Well-controlled 4. Obesity, with no significant weight changes 5. Minimal mitral regurgitation based on prior echocardiogram. 6. Family history of coronary artery disease RECOMMENDATIONS: 1. The patient was advised and counseled regarding losing weight, exercise, and risk factor adjustment. 2. The patient was advised to continue current medical therapy and I did review with her the result of her recent lab that she brought with her 3. We will see the patient back in the office in 10 months 4. Reviewed with her her recent stress test Surgical History Problems History of section History of Complete colonoscopy History of Lipoma excision Current Meds Medication NameInstruction Aspirin EC 81 MG Oral Tablet Delayed ReleaseTAKE 1 TABLET DAILY. Atorvastatin Calcium 40 MG Oral TabletTAKE 1 TABLET AT BEDTIME. Calcium 600 MG TABSTAKE 1 TABLET DAILY. CoQ-10 200 MG CAPSTAKE DIRECTED. Cranberry 450 MG Oral CapsuleTAKE DIRECTED. Estradiol 0.5 MG Oral TabletTAKE 1 TABLET DAILY. Krill Oil 500 MG Oral CapsuleTAKE 1 CAPSULE Daily Magnesium 400 MG Oral TabletTake 1 tablet daily medroxyPROGESTERone Acetate 2.5 MG Oral TabletTAKE 1 TABLET DAILY DIRECTED. Multi Vitamin Oral TabletTAKE 1 TABLET DAILY. Olmesartan Medoxomil 20 MG Oral TabletTake 1 tablet twice daily Spironolactone 25 MG Oral TabletTAKE 1 TABLET TWICE DAILY. Vitamin D-3 125 MCG (5000 UT) Oral TabletTake 1 tablet daily Zinc 50 MG Oral TabletTAKE 1 TABLET DAILY. Allergies NoKnown No Known Allergies Recorded By: Carmela Crowley; 10/04/2021 8:17:09 AM Social History Problems Caffeine use (V49.89) (Z78.9) Never a smoker No illicit drug use Social alcohol use (V49.89) (Z78.9) Review of Systems Constitutional: not feeling tired. Cardiovascular: no intermittent leg claudication and as noted in HPI. Respiratory: no cough and no shortness of breath. Gastrointestinal: no change in bowel habits and no blood in stools. Integumentary: no skin rashes. Neurological: no seizures and no frequent falls. All other systems have been reviewed and are negative for complaint. Vitals Vital Signs Recorded: [id number] 03:43PMRecorded: [id number] 02:43PM [id number], LUE, Sitting [id number], LUE, Sitting Heart Rate78, R Radial Height5 ft 6.5 in Ounwxm574 lb BMI Svqgwafple72.05 kg/m2 BSA Calculated1.96 Tobacco Useb) No PHQ-2 #1. Over the last 2 weeks have you felt down, depressed or hopeless? (If yes, answer PHQ-9 below)No PHQ-2 #2. Over the last 2 weeks have you felt little interest or pleasure in doing things? (If yes, answer PHQ-9 below)No Falls Screening (Age 18+)a) No falls within the last year Physical Exam Constitutional: alert and in no acute distress. Neck: neck is supple, symmetric, trachea midline, no masses and no thyromegaly . Pulmonary: no increased work of breathing or signs of respiratory distress and lungs clear to auscultation. Cardiovascular: carotid pulses 2+ bilaterally with no bruit , JVP was normal, no thrills , regular rhythm, normal S1 and S2, no murmur (more content not included)... Normal [facility] Albumin [Mass/volume] in Ser um or PlasmaOrdered By: Kennedy Dodson on 10-28-2022 Albumin [Mass/Vol] 3.8 g/dL 3.2-5.5 [facility] Basophils Auto (Bld) [#/Vol] Ordered By: Kennedy Dodson on 10-28-2022 Basophils (Bld) [#/Vol] 0.0 10*3/uL 0.0-0.2 [facility] Basophils/100 WBC Auto (Bld) Ordered By: Kennedy Dodson on 10-28-2022 Basophils/100 WBC (Bld) 0.4 % . [facility] Cholesterol [Mass/volume] in Serum or PlasmaOrdered By: Kennedy Dodson on 10-28-2022 Cholesterol [Mass/Vol] 148 mg/dL 140-200 [facility] Comment on above: Chol less than 200 m g/dl low riskChol 201-239 mg/dl borderline riskChol 240 mg/dl and greater high risk Cholesterol in LDL Calc [Mas s/Vol]Ordered By: Kennedy Dodson on 10-28-2022 Cholesterol in LDL [Mass/Vol] 98 mg/dL 0-100 [facility] Comment on above: LDL ATP III CLASSIFI CATIONLDL less than 100 mg/dL OptimalLDL 100-129 mg/dL Near or above optimalLDL 130-159 mg/dL Borderline highLDL 160-189 mg/dL HighLDL greater than 189 mg/dL Very high Cholesterol in VLDL Calc [Ma ss/Vol]Ordered By: Kennedy Dodson on 10-28-2022 Cholesterol in VLDL [Mass/Vol] 7 mg/dL [facility] Creatinine and Glomerular fi ltration rate.predicted panel (S/P/Bld)Ordered By: Kennedy Dodson on 10-28-2022 Creatinine [Mass/Vol] 0.92 mg/dL 0.44-1.03 [facility] Eosinophils Auto (Bld) [#/Vo l]Ordered By: Kennedy Dodson on 10-28-2022 Eosinophils (Bld) [#/Vol] 0.1 10*3/uL 0.0-0.45 [facility] Eosinophils/100 WBC Auto (Bl d)Ordered By: Kennedy Dodson on 10-28-2022 Eosinophils/100 WBC (Bld) 1.4 % . [facility] Erythrocyte distribution wid th Auto (RBC) [Ratio]Ordered By: Kennedy Dodson on 10-28-2022 Erythrocyte distribution width (RBC) [Ratio] 13.6 % 11.9-15.3 [facility] Estimated glomerular filtrat ion rate (GFR) non- AmericanOrdered By: Kennedy Dodson on 10-28-2022 GFR/1.73 sq M.predicted among non-blacks MDRD (S/P/Bld) [Vol rate/Area] > 60 mL/Min [facility] Globulin Calc (S) [Mass/Vol] Ordered By: Kennedy Dodson on 10-28-2022 Globulin (S) [Mass/Vol] 2.8 g/dL [facility] Glucose mean value [Mass/vol ume] in Blood Estimated from glycated hemoglobinOrdered By: Kennedy Dodson on 10-28-2022 Average glucose Estimated from glycated hemoglobin (Bld) [Mass/Vol] 131 mg/dL [facility] Hematocrit Auto (Bld) [Volum e fraction]Ordered By: Kennedy Dodson on 10-28-2022 Hematocrit (Bld) [Volume fraction] 41.6 % 34.0-46.4 [facility] Hemoglobin A1c percentageOrd ered By: Kennedy Dodson on 10-28-2022 HbA1c (Bld) [Mass fraction] 6.2 % 4.3-5.6 [facility] Comment on above: Increased risk for d iabetes: 5.7 - 6.4diabetes: >6.4glycemic control for adults with diabetes: <7.0 Hemoglobin [Mass/volume] in BloodOrdered By: Kennedy Dodson on 10-28-2022 Hemoglobin (Bld) [Mass/Vol] 13.6 g/dL 11.8-15.4 [facility] Leukocytes [#/volume] correc magdaleno for nucleated erythrocytes in Blood by Automated counOrdered By: Kennedy Dodson on 01-20-2023 WBC corrected for nucl RBC Auto (Bld) [#/Vol] 9.4 10*3/uL 3.8-11.6 [facility] Lymphocytes Auto (Bld) [#/Vo l]Ordered By: Kennedy Dodson on 10-28-2022 Lymphocytes (Bld) [#/Vol] 1.6 10*3/uL 1.00-4.8 [facility] Lymphocytes/100 WBC Auto (Bl d)Ordered By: Kennedy Dodson on 10-28-2022 Lymphocytes/100 WBC (Bld) 17.6 % . [facility] MCH Auto (RBC) [Entitic mass ]Ordered By: Kennedy Dodson on 10-28-2022 MCH (RBC) [Entitic mass] 31.0 pg 24.7-34.3 [facility] MCHC Auto (RBC) [Mass/Vol]Or dered By: Kennedy Dodson on 10-28-2022 MCHC (RBC) [Mass/Vol] 32.7 g/dL 32.0-35.0 [facility] MCV Auto (RBC) [Entitic vol] Ordered By: Kennedy Dodson on 10-28-2022 MCV (RBC) [Entitic vol] 94.8 fL 80-100 [facility] Monocytes Auto (Bld) [#/Vol] Ordered By: Kennedy Dodson on 10-28-2022 Monocytes (Bld) [#/Vol] 0.8 10*3/uL 0.0-0.8 [facility] Monocytes/100 WBC Auto (Bld) Ordered By: Kennedy Dodson on 10-28-2022 Monocytes/100 WBC (Bld) 8.6 % . [facility] Neutrophils Auto (Bld) [#/Vo l]Ordered By: Kennedy Dodson on 10-28-2022 Neutrophils (Bld) [#/Vol] 6.7 10*3/uL 1.8-7.7 [facility] Neutrophils/100 WBC Auto (Bl d)Ordered By: Kennedy Dodson on 10-28-2022 Neutrophils/100 WBC (Bld) 72.0 % . [facility] No Panel InformationOrdered By: Kennedy Dodson on 10-28-2022 25-Hydroxy Vitamin D Total > 120.0 ng/mL 30-100 [facility] Comment on above: VITAMIN D STATUS 25( OH)VITAMIN D RANGE (ng/mL) Deficient <20 Insufficient 20 to <30Sufficient 30 to 100Reference: Ellyn MF,Libby NC, Mary GAFFNEY, et al. Evaluation,treatment, and prevention of vitamin D deficiency; an Endocrine Society clinical practice guideline. JCEM. 2010; 96(7):1911-30. Estimated GFR () > 60 mL/Min [facility] Comment on above: GFR estimated refere nce range: According to KDOQI guidelines, <60 ml/min/1.73m2 is sufficient to diagnose a patient with chronic kidney disease. Pharmacy Creatinine Clearance (Chem N/A [facility] Nucleated erythrocytes [Pres ence] in Blood by Automated countOrdered By: Kennedy Dodson on 10-28-2022 Nucleated RBC Auto Ql (Bld) 0.1 /100{WBC} 0-0.5 [facility] Platelet mean volume Auto (B ld) [Entitic vol]Ordered By: Kennedy Dodson on 10-28-2022 Platelet mean volume (Bld) [Entitic vol] 10.4 fL 6.3-10.7 [facility] Platelets Auto (Bld) [#/Vol] Ordered By: Kennedy Dodson on 10-28-2022 Platelets (Bld) [#/Vol] 210 10*3/uL 150-450 [facility] Protein [Mass/volume] in Ser um or PlasmaOrdered By: Kennedy Dodson on 10-28-2022 Protein [Mass/Vol] 6.6 g/dL 6.1-7.9 [facility] RBC Auto (Bld) [#/Vol]Ordere d By: Kennedy Dodson on 10-28-2022 RBC (Bld) [#/Vol] 4.39 10*6/uL 3.60-5.00 [facility] Serum or plasma alanine diego otransferase measurement without P-5'-P (enzymatic activiOrdered By: Kennedy Dodson on 10-28-2022 ALT No additional P-5'-P [Catalytic activity/Vol] 23 U/L 10-60 [facility] Serum or plasma albumin/glob ulin mass ratioOrdered By: Kennedy Dodson on 10-28-2022 Albumin/Globulin [Mass ratio] 1.4 {ratio} [facility] Serum or plasma alkaline danisha sphatase measurement (enzymatic activity/volume)Ordered By: Kennedy Dodson on 10-28-2022 ALP [Catalytic activity/Vol] 75 U/L 32-92 [facility] Serum or plasma anion gap de terminationOrdered By: Kennedy Dodson on 10-28-2022 Anion gap [Moles/Vol] 12.0 mmol/L 6.0-15.0 [facility] Serum or plasma aspartate am inotransferase measurement (enzymatic activity/volume)Ordered By: Kennedy Dodson on 10-28-2022 AST [Catalytic activity/Vol] 23 U/L 10-42 [facility] Serum or plasma calcium carissa urement (mass/volume)Ordered By: Kennedy Dodson on 10-28-2022 Calcium [Mass/Vol] 9.4 mg/dL 8.2-10.2 [facility] Serum or plasma chloride varinder surement (moles/volume)Ordered By: Kennedy Dodson on 10-28-2022 Chloride [Moles/Vol] 102 mmol/L 95-114 [facility] Serum or plasma glucose carissa urement (mass/volume)Ordered By: Kennedy Dodson on 10-28-2022 Glucose [Mass/Vol] 102 mg/dL 70-100 [facility] Comment on above: ADA recommended refe rence rangeRandom Glucose Reference Range is dependent on time and content of last meal. Glucose of more than 200 mg/dL in a nonstressed, ambulatory subject supports the diagnosis of Diabetes Mellitus. Serum or plasma high density lipoprotein (HDL) cholesterol measurementOrdered By: Kennedy Dodson on 10-28-2022 Cholesterol in HDL [Mass/Vol] 43 mg/dL 35-85 [facility] Comment on above: HDL CHOL ATP-III CLA SSIFICATION Cardiovascular RiskHDL > or equal to 60 mg/dL LOWHDL < 40 mg/dL HIGH Serum or plasma potassium me asurement (moles/volume)Ordered By: Kennedy Dodson on 10-28-2022 Potassium [Moles/Vol] 4.6 mmol/L 3.5-5.1 [facility] Serum or plasma sodium measu rement (moles/volume)Ordered By: Kennedy Dodson on 10-28-2022 Sodium [Moles/Vol] 136 mmol/L 136-146 [facility] Serum or plasma total biliru bin measurement (mass/volume)Ordered By: Kennedy Dodson on 10-28-2022 Bilirubin [Mass/Vol] 0.7 mg/dL 0.3-1.2 [facility] [place] Serum or plasma total carbon dioxide measurement (moles/volume)Ordered By: Kennedy Dodson on 10-28-2022 CO2 [Moles/Vol] 26.6 mmol/L 22.0-30.0 [facility] Serum or plasma total choles terol/high density lipoprotein (HDL) cholesterol mass ratOrdered By: Kennedy Dodson on 10-28-2022 Cholesterol.total/Shy sterol in HDL [Mass ratio] 3.4 {ratio} <5.0 [facility] Serum or plasma urea nitroge n measurement (mass/volume)Ordered By: Kennedy Dodson on 10-28-2022 Urea nitrogen [Mass/Vol] 23 mg/dL 9-23 [facility] TSH DL <= 0.005 mIU/L QnOrde red By: Kennedy Dodson on 10-28-2022 TSH Qn 1.16 m[IU]/L 0.45-5.33 [facility] Triglyceride [Mass/volume] i n Serum or PlasmaOrdered By: Kennedy Dodson on 10-28-2022 Triglyceride [Mass/Vol] 35 mg/dL 35-149 [facility] Comment on above: TRIG ATP III CLASSIF ICATIONTRIG less than 150 mg/dL NormalTRIG 150-199 mg/dL Borderline highTRIG 200-500 mg/dL High TRIG greater than 500 mg/dL Very highStandard traceable to the Center for Disease Conrtrol and Prevention (CDC) test method. WBC Auto (Bld) [#/Vol]Ordere d By: Kennedy Dodson on 10-28-2022 WBC (Bld) [#/Vol] 9.4 10*3/uL 3.8-11.6 [facility] COVID-19 SOFIAOrdered By: Jennie patricia Stephen on 10-24-2022 SARS-CoV+SARS-CoV-2 (COVID-19) Ag IA.rapid Ql (Resp) Negative Negative [facility] Comment on above: This is a duplicate Tessa SARS Antigen (JOVITA) result to be used for statistical tracking purpose only. No Panel InformationOrdered By: Min Mitchell on 10-24-2022 SARS Antigen (LFIA) [facility] SARS Antigen (LFIA) [facility] Cardiac Stress Teston 2021 Cardiac Stress Test [address], [address] [place] [address] Exercise Stress Test Patient Name: BETSY Alcaraz Ordering Physician: MELINA Study Date: 02/16/2022 Reading Physician: [id number] Gilberto Donovan MD MRN/PID: [id number] Supervising [id number] Veronica Jimenez DO Physician: Accession/Order#: [id number] Referring Physician: [id number] GILBERTO DONOVAN Date of : 1955 PCP: Gender: F Fellow: Height: 167.64 cm Nurse: Teresita Rivera RN Weight: 87.54 kg Paper Control Clerk: N/A BSA: 1.97 m2 Technologist: BMI: 31.15 kg/m2 Additional Staff: Age: 67 years cc report to: Study Type: Cardiac Stress Test Diagnosis/ICD: R94.31-Abnormal electrocardiogram [ECG] [EKG] Indication: Abnormal EKG Procedure/CPT: Stress Test Supervision-[id number] Falls Risk: Low: Patient has low risk for sustaining a fall; environmental safety interventions in place. Study Details: Correct procedure and correct patient verified verbally. Patient Performance: The patient exercised to stage on a Hiro protocol for 6 minutes and 10 seconds, achieving 7.3 METS. The peak heart rate achieved was 155 bpm, which was 100 % of the age predicted target heart rate of 155 bpm. The resting blood pressure was 164/70 mmHg with a heart rate of 83 bpm. The standing blood pressure was 170/80 mmHg with a heart rate of 88 bpm. The blood pressure response was normal. The test was terminated due to: dyspnea. Nondiagnostic ST-T changes. Double Product (HR x BP): 310. Baseline ECG: Resting ECG showed normal sinus rhythm. Normal sinus rhythm with nonspecific ST-T changes. Stress Stage Data: + +-- -+------+-------+ HR Sys BP Bonilla BP + +-- -+------+-------+ Baseline Resting 83 164 70 + +-- -+------+-------+ Baseline Standing 88 170 80 + +-- -+------+-------+ Stage I 120 176 72 + +-- -+------+-------+ Stage II 153 200 70 + +-- -+------+-------+ + +---+--- ---+-------+ HR Sys BP Bonilla BP + +---+--- ---+-------+ Recovery I 139 170 70 + +---+--- ---+-------+ Recovery II 117 184 80 + +---+--- ---+-------+ Recovery III 105 170 64 + +---+--- ---+-------+ Recovery IV 97 150 70 + +---+--- ---+-------+ Summary: 1. Normal graded exercise stress test without diagnostic ST-T changes for ischemia. 2. No provoked chest pain or arrhythmia. 3. Appropriate hemodynamic response to exercise. 4. Fair exercise tolerance. 5. Normal heart rate recovery phase. 6. Were compared to prior study no changes were seen. [id number] Gilberto Donovan MD Electronically signed on 02/16/2022 at 11:44:25 AM Final Normal [facility] Cardiac Stress Test MP-No rt [employer] 250 DO Work Phone: Tobacco Screening.on 022 Tobacco use status [facility] b) No M [facility] [employer] DO Work Phone: Urine 10 SGon 10-27-2021 Albumin DL <= 20 mg/L (U) [Mass/Vol] Negative [employer] Other Albumin DL <= 20 mg/L (U) [Mass/Vol] small [employer] Other Urine 10 SG Negative [employer] Other Urine 10 SG >=1.030 [employer] Other Urine 10 SG 6.0 [employer] Other Urine 10 SG 0.2 [employer] Other Vital Signs Date Time Vital Sign Value Performing Clinician Facility 11-08-2023 08:15-0500 Body height 170.18 cm Kennedy Dodson Other [facility] 11-08-2023 08:15-0500 Body mass index (BMI) [Ratio] 29.44 kg/m2 Kennedy Dodson Other [employer] Other 11-08-2023 08:15-0500 Body weight 85.28 kg Kennedy Dodson Other [employer] Other 11-08-2023 08:15-0500 Body weight 85.27 kg DO Kennedy Sidneys Work Phone: [facility] 11-08-2023 08:15-0500 Diastolic blood pressure 74 mm[Hg] Kennedy Sidneys Other [facility] 11-08-2023 08:15-0500 Respiratory rate 16 /min Kennedy Littles Other [facility] [employer] Other 11-08-2023 08:15-0500 SaO2% (BldA) [Mass fraction] 96 % Kennedy Littles Other [facility] [employer] Other 11-08-2023 08:15-0500 Systolic blood pressure 114 mm[Hg] Kennedy Littles Other [facility] 10-26-2022 08:47-0500 Diastolic blood pressure 51 mm[Hg] DO Kennedy Sidneys Work Phone: [facility] 10-26-2022 08:47-0500 Heart rate 68 /min DO Kennedy Sidneys Work Phone: [facility] 10-26-2022 08:47-0500 Respiratory rate 18 /min DO Kennedy Sidneys Work Phone: [facility] 10-26-2022 08:47-0500 SaO2% (BldA) [Mass fraction] 100 % DO Kennedy Sidneys Work Phone: [facility] 10-26-2022 08:47-0500 Systolic blood pressure 102 mm[Hg] DO Kennedy Kuns Work Phone: [facility] 10-26-2022 07:34-0500 Body height 168.91 cm DO Kennedy Kuns Work Phone: [facility] 10-26-2022 07:34-0500 Body temperature 98.6 [degF] DO Kennedy Kuns Work Phone: [facility] 10-26-2022 07:34-0500 Body weight 85.27 kg DO Kennedy Sidneys Work Phone: [facility] 12-09-2021 15:05-0500 Diastolic blood pressure 84 mm[Hg] Kennedy P Kuns Work Phone: [facility] DO Work Phone: 12-09-2021 15:05-0500 Systolic blood pressure 122 mm[Hg] Kennedy P Sidneys Work Phone: [facility] DO Work Phone: 12-09-2021 14:28-0500 Body height 168.91 cm Kennedy Littles Work Phone: [facility] DO Work Phone: 12-09-2021 14:28-0500 Body mass index (BMI) [Ratio] 30.68 kg/m2 Kennedy Littles Work Phone: [facility] 250 DO Work Phone: 12-09-2021 14:28-0500 Body surface area Derived from formula 1.98 m2 Kennedy P Sidneys Work Phone: [facility] 250 DO Work Phone: 12-09-2021 14:28-0500 Body weight 87.54 kg Kennedy P Sidneys Work Phone: [facility] DO Work Phone: 12-09-2021 14:28-0500 Diastolic blood pressure 76 mm[Hg] Kennedy P Kuns Work Phone: [facility] DO Work Phone: 12-09-2021 14:28-0500 Heart rate 80 /min Kennedy P Kuns Work Phone: [facility] DO Work Phone: 12-09-2021 14:28-0500 Systolic blood pressure 150 mm[Hg] Kennedy Dodson Work Phone: [facility] [employer] 250 DO Work Phone: 10-27-2021 08:45-0500 Body height 170.18 cm Kennedy Dodson Other [employer] Other 10-27-2021 08:45-0500 Body mass index (BMI) [Ratio] 30.07 kg/m2 Kennedy Dodson Other [employer] Other 10-27-2021 08:45-0500 Body weight 87.09 kg Kennedy Dodson Other [employer] Other 10-27-2021 08:45-0500 Diastolic blood pressure 70 mm[Hg] Kennedy Dodson Other [employer] Other 10-27-2021 08:45-0500 Respiratory rate 16 /min Kennedy Dodson Other [employer] Other 10-27-2021 08:45-0500 SaO2% (BldA) [Mass fraction] 97 % Kennedy Dodson Other [employer] Other 10-27-2021 08:45-0500 Systolic blood pressure 134 mm[Hg] Kennedy Dodson Other [employer] Other Encounters Encounter Date Encounter Type Care Provider Facility Start: 01-01-2024 ambulatory Veronica Graham ty:[facility] Start: 01-01-2024 End: 01-01-2024 ambulatory DO Kennedy Dodson Work Phone: [facility] Work Phone: Start: 01-01-2024 End: 01-01-2024 Patient encounter procedure DO Kennedy Dodson Work Phone: [facility] Work Phone: Start: 11-08-2023 Annual wellness visit Kennedy dixon Other [facility] [employer] Other Start: 11-08-2023 End: 11-08-2023 Patient encounter procedure DO Kennedy Dodson Work Phone: [facility] Work Phone: Start: 11-08-2023 End: 11-08-2023 ambulatory Kennedy Dodson Facility:[facility] Start: 11-08-2023 End: 11-08-2023 ambulatory DO Kennedy Dodson Work Phone: [facility] Work Phone: Start: 11-08-2023 End: 11-08-2023 Patient encounter procedure DO Kennedy Dodson Work Phone: [facility]- Start: 11-07-2023 End: 11-07-2023 ambulatory PRATIMA POOLE Not Available Start: 11-01-2023 End: 11-01-2023 ambulatory Kennedy Dodson Facility:[facility] Start: 11-01-2023 End: 11-01-2023 ambulatory DO Kennedyruddy Dodson Work Phone: [facility] Work Phone: Start: 11-01-2023 End: 11-01-2023 Patient encounter procedure DO Kennedy Dodson Work Phone: [facility] Work Phone: Start: 10-31-2023 End: 10-31-2023 ambulatory VERONICA KOEHLER Not Available Start: 08-24-2023 End: 08-24-2023 ambulatory PRATIMA POOLE Not Available Start: 01-31-2023 ambulatory Gilberto Donovan Faccarlos lity: Start: 01-17-2023 End: 01-17-2023 ambulatory Kennedy Dodson Other [employer] Other Start: 01-17-2023 Telephone encounter Kennedy Dodson [facility] Start: 12-27-2022 End: 12-27-2022 ambulatory DO Kennedy Dodson Work Phone: [facility] Work Phone: Start: 12-27-2022 End: 12-27-2022 Patient encounter procedure DO Kennedy Dodson Work Phone: [facility] Work Phone: Start: 12-16-2022 End: 12-16-2022 ambulatory Kennedy Dodson Other [employer] Other Start: 12-16-2022 Telephone encounter Kennedy Dodson [facility] Start: 10-31-2022 End: 10-31-2022 ambulatory Kennedy Dodson Other [employer] Other Start: 10-31-2022 Telephone encounter Kennedy Dodson [facility] Start: 10-28-2022 End: 10-28-2022 ambulatory DO Kennedy Dodson Work Phone: [facility] Work Phone: Start: 10-28-2022 End: 10-28-2022 Patient encounter procedure DO Kennedy Dodson Work Phone: [facility] Work Phone: Start: 10-26-2022 End: 10-26-2022 Admission to same day surgery center DO Kennedy Dodson Work Phone: [facility] Work Phone: Start: 10-26-2022 End: 10-26-2022 ambulatory DO Kennedy Dodson Work Phone: [facility] Work Phone: Start: 10-24-2022 End: 10-24-2022 ambulatory DO Kennedy Dodson Work Phone: [facility] Work Phone: Start: 10-24-2022 End: 10-24-2022 Patient encounter procedure DO Kennedy Dodson Work Phone: [facility] Work Phone: Start: 08-29-2022 End: 08-29-2022 ambulatory Kennedy Dodson Other [employer] Other Start: 08-29-2022 Telephone encounter Kennedy Dodson [facility] Start: 08-26-2022 End: 08-26-2022 ambulatory Kennedy Dodson Other [employer] Other Start: 08-26-2022 Telephone encounter Kennedy Dodson [facility] Start: 08-22-2022 End: 08-22-2022 ambulatory Kennedy Dodson Other [employer] Other Start: 08-22-2022 Telephone encounter Kennedy Dodson [facility] Start: 02-16-2022 Chart Update Kennedy Dodson Work Phone: [facility] DO Work Phone: Start: 12-09-2021 Office outpatient vi sit 25 minutes Kennedy Dodson Work Phone: [facility] DO Work Phone: Start: 10-27-2021 End: 10-27-2021 ambulatory Kennedy Dodson Other [employer] Other Start: 10-27-2021 Encounter for genera l adult medical examination without abnormal findings Kennedy Dodson [facility] Start: 10-27-2021 Periodic preventive med est patient 40-64yrs Kennedy Dodson [facility] Start: 09-20-2017 Annual wellness visit Kennedy dixon Other [employer] Other Procedures Date Procedure Procedure Detail Performing Clinician Start: 01-01-2024 Screening mammograph y of bilateral breasts DO Kennedy Dodson Work Phone: Start: 11-08-2023 X-ray of left ankle DO Kennedyruddy Dodson Work Phone: Start: 11-08-2023 X-ray of left foot DO Rogelio enrique West Work Phone: Start: 12-27-2022 Screening mammograph y of bilateral breasts DO Kennedy Dodson Work Phone: Start: 10-26-2022 Screening colonoscopy D O Kennedy Dodson Work Phone: Start: 10-24-2022 SARS Antigen (LFIA) DO Kennedy Dodson Work Phone: section Kennedy muñoz Work Phone: Excision of lipoma Kennedy alvarez Work Phone: Total colonoscopy Kennedy dixon Work Phone: Plan of Treatment Date Care Activity Detail Author Start: 12-08-2022 FUV, Provider: Gilberto Donovan, Status: Pen, Time: 1:00 PM FUV, Provider: Gilberto Donovan, Status: Pen, Time: 1:00 PM -[facility] DO Work Phone: Start: 10-26-2022 [facility] Start: 02-16-2022 STRESS SOPHIE, [facility] : [facility],[id number], Status: Pen, Time: 11:00 AM STRESS SOPHIE, Provider: [facility] NUCLEAR ,[id number], Status: Pen, Time: 11:00 AM [facility] 250 DO Work Phone: Glucose measurement estimated from glycated hemoglobin [facility] Immunizations Immunization Date Immunization Notes Care Provider Fa justin 07-19-2023 Flu Shot - Documentation Purposes Only Kennedy Dodson Other [facility] [employer] Other 07-19-2023 Flu Shot - Documentation Purposes Only Kennedy Dodson Other [facility] 07-26-2022 Prevnar 20 Kennedy Dodson Other [facility] 07-26-2022 influenza, seasonal, injectable Kennedy Dodson Other [facility] 08-07-2021 COVID-19 Vaccine Pfi zer - Documentation Purposes Only Kennedy Dodson Other [facility] 07-13-2021 Seasonal, quadrivale nt, recombinant, injectable influenza vaccine, preservative free Kennedy Dodson Work Phone: [facility] 250 DO Work Phone: 07-13-2021 influenza, seasonal, injectable Kennedy Dodson Other [facility] [employer] Other 07-13-2021 influenza, seasonal, injectable Kennedy Littles Other [facility] 12-31-2020 COVID-19 Vaccine Pfi zer - Documentation Purposes Only Kennedy Dodson Other [facility] 12-10-2020 COVID-19 Vaccine Pfi zer - Documentation Purposes Only Kennedy Dodson Other [facility] 09-10-2020 zoster vaccine recombinant Kennedy Dodson Other [facility] 07-09-2020 influenza virus vaccine, unspecified formulation Kennedy P Kuns Work Phone: [facility] 250 DO Work Phone: 07-08-2020 zoster vaccine recombinant Kennedy Kuns Other [facility] 07-08-2020 influenza, injectabl e, quadrivalent, preservative free Kennedy Kuns Other [facility] 07-23-2019 influenza, seasonal, injectable Kennedy Kuns Other [facility] 07-23-2019 Seasonal, quadrivale nt, recombinant, injectable influenza vaccine, preservative free Kennedy P Kuns Work Phone: [place] [address] DO Work Phone: 07-09-2019 influenza virus vaccine, unspecified formulation Kennedy P Kuns Work Phone: [place] [address] DO Work Phone: 08-06-2018 influenza, seasonal, injectable Kennedy Kuns Other [facility] 08-06-2018 influenza, injectabl e, quadrivalent, preservative free Kennedy P Kuns Work Phone: [place] [address] DO Work Phone: 07-09-2018 influenza virus vaccine, unspecified formulation Kennedy P Kuns Work Phone: [place] [address] DO Work Phone: 07-01-2017 influenza virus vaccine, unspecified formulation Kennedy P Kuns Work Phone: [place] [address] DO Work Phone: 07-26-2016 influenza, injectabl e, quadrivalent, preservative free Kennedy P Kuns Work Phone: [place] [address] DO Work Phone: 07-26-2016 zoster vaccine, live Kennedy P Sidneys Work Phone: [place] [address] DO Work Phone: 07-11-2016 influenza, injectabl e, quadrivalent, preservative free DO Kennedy Sidneys Work Phone: [facility] 07-11-2016 influenza, injectabl e, quadrivalent, contains preservative Knenedy Kuns Other [facility] [employer] Other 07-11-2016 zoster vaccine, live Kennedy alvarez Other [facility] 07-09-2016 influenza virus vaccine, unspecified formulation Kennedy P Kuns Work Phone: [place] [address] DO Work Phone: 07-09-2016 varicella virus vaccine Jovita Dodson Other [facility] 07-09-2016 zoster vaccine, live Kennedy P Kuns Work Phone: [place] [address] DO Work Phone: 07-15-2015 tetanus toxoid, redu jodi diphtheria toxoid, and acellular pertussis vaccine, adsorbed Kennedy Kuns Other [facility] 07-09-2015 influenza virus vaccine, unspecified formulation Kennedy P Sidneys Work Phone: [place] [address] DO Work Phone: 07-09-2015 tetanus toxoid, redu jodi diphtheria toxoid, and acellular pertussis vaccine, adsorbed Kennedy Kuns Other [facility] 07-09-2015 influenza, seasonal, injectable Kennedy Kuns Other [facility] 07-21-2014 influenza, seasonal, injectable, preservative free Kennedy P Kuns Work Phone: [facility] DO Work Phone: Payers Date Payer Category Payer Self-pay [id number] 2022 Medicare [id number] 2022 Medicare [id number] 1955 Unknown [id number] 1955 Unknown [id number] 1955 Unknown [id number] 1955 Unknown [id number] Medicare Medicare [id number] Private Health Insurance [id number] Private Health Insurance Count Includes [facility] [employer] [id number] Unknown Unknown [facility] [id number] Unknown [id number] Unknown [id number] Unknown [id number] Social History Date Type Detail Facility Social alcohol use Social alcohol use [facility] [employer] Other Sex Assigned At Sex Assigned At [facility] [employer] Other Start: 1955 Sex Assigned At Female F [facility] Start: 10-26-2022 End: 10-26-2022 Tobacco smoking status NHIS Never smoked tobacco (finding) [facility] Goals Date Patient Goal Desired Activity /State Clinical Notes 12-10-2011 to 11-08-2023 Note Date & Type Note Facility 11-08-2023 Evaluation note Encounter Date Diagnosis Assessment Notes Oct, Medicare annual wellness visit, initial (ICD-10 - Z00.00) Personalized health advice was given to the beneficiary including a written plan for screenings discussed and provided. Advanced care planning reviewed and/or information given as requested. The above visit was performed by JESSICA Tucker under direct supervision of Dr. Kennedy Dodson. Document reviewed and amended by provider signed below. Personalized health advice was given to the beneficiary to health education of preventative counseling services or programs aimed at reducing identified risk factors and improving self-management or community-based lifestyle interventions to reduce health risks and promote self-management and wellness, including physical activity and nutrition. A written plan for screenings was discussed, flu vaccination, routine lab studies, eye exams, as well as risk factors for other medical problems. All preventative health recommendations to include immunizations were discussed today Oct, Hyperlipidemia (ICD-10 - E78.5) I have reviewed all of her recent lab results with her today. She tolerating the statin therapy well without any ill side effects to report. Liver enzymes are normal. I will have her continue with the lipitor as ordered. Remainder of her labs are stable to include her blood counts, renal function, thyroid levels and other chemestries. She does have elevation of her glucose and newly dx with type 2 DM. Treatment initiated today. In the meantime she is to work on diet modification. Increase her activty and work on weight loss Oct, Hyperglycemia (ICD-10 - R73.9) In house A1C does reveal new onset DM type 2. Treatment initiated today Oct, Hypertension (ICD-10 - I10) Blood pressure is well controlled on current medications. I will have her continue as ordered. Monitor BP at home if able to do so. Keep scheduled appointments with gasket notcher. Oct, Diabetes mellitus without complication (ICD-10 - E11.9) A1C in office today does reveal new onset of DM type 2. A1C of 6.7 She does have PCOS and is under the care of [facility] for this. After much discussion with her today the best treatment to get this under control to include diet modification, exercise and calorie reduction. Weight loss encouraged. I will start her on Rybelsus today as she is not interested in giving herself a weekly shot. Sample provided. I have reviewed all positive and negative side effects Oct, Left foot pain (ICD-10 - M79.672) Patient fell asleep sitting on her left foot approx 3 weeks ago. She developed some pain and swelling of the foot along with some burning sensation since that time. The swelling does not pass above the foot. I do not feel there is any indication of DVT at this time but I do recommend getting imaging to rule out any stress fractures. She is in agreement. [facility] Other 04-11-2023 Evaluation note* Encounter Date Diagnosis Assessment Notes Treatment Notes Treatment Clinical Notes Jan, Hypertension (ICD-10 - I10) [facility]* Encounter Date Diagnosis Assessment Notes Treatment Notes Treatment Clinical Notes Aug, Hypertension (ICD-10 - I10) [facility] Other 11-18-2022 Evaluation note* Encounter Date Diagnosis Assessment Notes Treatment Notes Treatment Clinical Notes Aug, Hyperlipidemia (ICD-10 - E78.5) Aug, Hyperglycemia (ICD-1 0 - R73.9) Aug, Vitamin D deficiency (ICD-10 - E55.9) [facility] Other 11-01-2013 History general Narrative - Reported* Type Description Date Medical History high cholesterol Medical History hypertension Medical History PCOS Medical History 08/2013 Labs Medical History Follows with Dr. Delia bhakta for Mammogram/Pap/Pelvics yearly Medical History 08/18/11-stress test at [facility]-neg ative Medical History varicose veins Medical History 05-08-[address] Taylor -normal Medical History 10/19/18 Mammogram Medical History 09/25/19 EKG Medical History Non smoker Surgical History c section x2 Surgical History right breast cyst benign 2002 Surgical History colonoscopy 04/2012 Surgical History prior laser treatmen t using a cutaneous laser, by Dr. Nicole Surgical History Sclerotherapy Zev LE 09/15/2015 Surgical History Sclerotherapy Zev LE 10/20/2015 Hospitalization History see above [facility] Other 11-01-2013 History general Narrative - Reported* Type Description Date Medical History high cholesterol Medical History hypertension Medical History PCOS Medical History 08/2013 Labs Medical History Follows with Dr. Delia bhakta for Mammogram/Pap/Pelvics yearly Medical History 08/18/11-stress test at [facility]-neg ative Medical History varicose veins Medical History 05-08-[address] Taylor -normal Medical History 10/19/18 Mammogram Medical History 09/25/19 EKG Medical History Non smoker Medical History 10/26/[address] Mitchell 10 year repeat Medical History 11/30/2021 Mammogram Surgical History c section x2 Surgical History right breast cyst benign 2002 Surgical History colonoscopy 04/2012 Surgical History prior laser treatmen t using a cutaneous laser, by Dr. Nicole Surgical History Sclerotherapy Zev LE 09/15/2015 Surgical History Sclerotherapy Zev LE 10/20/2015 Hospitalization History see above [facility] Other 05-12-2012 History of Present illness Narrative* Is here for follow-up to management for previous evaluation for abnormal EKG, hypertension, hyperlipidemia and obesity. Since last time I saw her she reports has been feeling well. She denies complaint of chest pain, palpitation, lightheadedness, dizziness or syncope. She brought a copy of her lab and EKG. She continued to have abnormal EKG. She had very strong family history of coronary artery disease. Her previous stress test was more than 10 years ago. * ASSESSMENT: * 1. Normal EKG showing nonspecific ST-T changes I suspect due to hypertension. Had a previous cardiac work-up remotely was negative * 2. Hypertension, controlled on current medical therapy * 3. Hyperlipidemia. Recent labs reviewed. Well-controlled * 4. Obesity, with no significant weight changes * 5. Minimal mitral regurgitation based on prior echocardiogram. * 6. Family history of coronary artery disease * RECOMMENDATIONS: * 1. The patient was advised and counseled regarding losing weight, exercise, and risk factor adjustment. I advised her to put a goal to lose 5 to 10 pounds by next office visit * 2. The patient was advised to continue current medical therapy and I did review with her the resultof her recent lab that she brought with her * 3. We will see the patient back in the office in 1 year. * 4. Reviewed with her her recent lab work * 5. I recommend GXT to assess her functional status and ensure no progression of underlying ischemicheart disease 0.6. I advised her to take her Aldactone as 50 mg once daily [facility] Work Phone: 1(928) 961-660903-17-2012 History of Present illness Narrative* Is here for follow-up to management for previous evaluation for abnormal EKG, hypertension, hyperlipidemia and obesity. Since last time I saw her she reports has been feeling well. She denies complaint of chest pain, palpitation, lightheadedness, dizziness or syncope. She brought a copy of her lab and EKG. She continued to have abnormal EKG. She had very strong family history of coronary artery disease. Her previous stress test was more than 10 years ago. * ASSESSMENT: * 1. Normal EKG showing nonspecific ST-T changes I suspect due to hypertension. Had a previous cardiac work-up remotely was negative * 2. Hypertension, controlled on current medical therapy * 3. Hyperlipidemia. Recent labs reviewed. Well-controlled * 4. Obesity, with no significant weight changes * 5. Minimal mitral regurgitation based on prior echocardiogram. * 6. Family history of coronary artery disease * RECOMMENDATIONS: * 1. The patient was advised and counseled regarding losing weight, exercise, and risk factor adjustment. I advised her to put a goal to lose 5 to 10 pounds by next office visit * 2. The patient was advised to continue current medical therapy and I did review with her the resultof her recent lab that she brought with her * 3. We will see the patient back in the office in 1 year. * 4. Reviewed with her her recent lab work * 5. I recommend GXT to assess her functional status and ensure no progression of underlying ischemicheart disease 0.6. I advised her to take her Aldactone as 50 mg once daily [employer] Work Phone: 1(173) 266-684603-03-2012 History of Present illness Narrative* Is here for follow-up to management for previous evaluation for abnormal EKG, hypertension, hyperlipidemia and obesity. Since last time I saw her she reports has been feeling well. She denies complaint of chest pain, palpitation, lightheadedness, dizziness or syncope. She brought a copy of her lab and EKG. She continued to have abnormal EKG. She had very strong family history of coronary artery disease. Her previous stress test was more than 10 years ago. * ASSESSMENT: * 1. Normal EKG showing nonspecific ST-T changes I suspect due to hypertension. Had a previous cardiac work-up remotely was negative * 2. Hypertension, controlled on current medical therapy * 3. Hyperlipidemia. Recent labs reviewed. Well-controlled * 4. Obesity, with no significant weight changes * 5. Minimal mitral regurgitation based on prior echocardiogram. * 6. Family history of coronary artery disease * RECOMMENDATIONS: * 1. The patient was advised and counseled regarding losing weight, exercise, and risk factor adjustment. I advised her to put a goal to lose 5 to 10 pounds by next office visit * 2. The patient was advised to continue current medical therapy and I did review with her the resultof her recent lab that she brought with her * 3. We will see the patient back in the office in 1 year. * 4. Reviewed with her her recent lab work * 5. I recommend GXT to assess her functional status and ensure no progression of underlying ischemicheart disease 0.6. I advised her to take her Aldactone as 50 mg once daily [facility] 250 DO Work Phone: Evaluation [facility] [employer] Other Evaluation noteNo InformationNortGuthrie [facility] [employer] Other Evaluation noteNo assessment information available [facility] Work Phone: History and physical note Author Min Mitchell [facility] October 26, 2022 8:02am Note Date/Time October 26, 2022 8 :02am [facility] [address] [place] [address] Gastroenterology H&P Signed Patient: Betsy Summers MR#: [id number] : 1955 Acct:[id number] Age/Sex: 67 / F Adm Date: 3 Loc: Room: Type: [facility] Attending Dr: Min Mitchell MD Copies to: Kennedy DO Min Damon MD~ Date of Service: 10/26/2022 HISTORY & PHYSICAL: Patient's history with special attention to the cardiovascular, pulmonary systems and the current problem was reviewed with the patient immediately prior to the procedure. Present medications and doses reviewed in the EMR. Allergies and pertinent laboratory tests were also reviewedat this time in the EMR. The physical examination, as below, was then performed. Indication, assessment and HPI: 67-year-old female presents for screening colonoscopy Family history of GI malignancy? No PHYSICAL EXAMINATION Mouth and Pharynx : Moist mucus membranes, normal dentition Cardiac: Regular rate, regular rhythm Pulmonary: Clear to auscultation bilaterally, no wheezing Neurological: Alert and oriented x3, no focal deficits noted Abdomen: Abdomen soft, non-tender REVIEW OF SYSTEMS Constitutional: Denies malaise, fevers Cardiovascular: Denies chest pain, palpitations Respiratory: Denies shortness of breath, wheezing Gastrointestinal: Per HPI Genitourinary: Denies dysuria, polyuria Musculoskeletal: Denies joint swelling, joint stiffness Neurological: Denies numbness, tingling Integumentary: Denies rashes, skin lesions Endocrine: Denies fatigue, weight loss Written informed consent obtained from the patient. Risks (including but not limited to perforation, infection, bloating, bleeding, need for emergent surgeryand loss of life), benefits and alternatives explained and questions answered. The patient verbalized understanding. Based on history patient is an appropriate candidate for the procedure. Min Mitchell MD Documented By: Min Mitchell MD 10/26/22801 Signed By: <Electronically signed by Min Mitchell MD> 10/26/22801 [facility] Work Phone: History general Narrative - [facility] [employer] Other Hospital Discharge instructions Additional Instructions DISCHARGE INSTRUCTIONS FOR COLONOSCOPY WHAT TO EXPECT: - You may feel full, gassy or cramping after your procedure. In some cases, this may be from a few hours to a day. Walking may help relieve the discomfort. - If you have polyp(s) removed you may note some minor bloody discharge after your first bowel movements. - You should begin to recover from anesthesia within 1 hour of the procedure, however may feel groggy for the next 24 hours. DO's AND DON'Ts: - Call your doctor right away if you have a hard abdomen, severe pain, are passing lots of bright red blood or clots. - Call your doctor if you develop any rashes, hives or difficulty breathing. - Let your doctor know if you have not had a bowel movement by 3 days after your procedure. - If you take 81 mg aspirin for your heart it is safe to resume this medication. - If you take other blood thinner medications your doctor will instruct you when these can safely be resumed. - Do NOT drive for 24 hours. - Do NOT operate machinery such as power tools, lawn mowers, snow blowers, sewing machines, etc. for 24 hours. - Avoid alcoholic beverages and drugs for allergies, nerves, or sleep. - Do NOT stay alone. Do NOT leave your child unattended. - Do NOT make important personal or business decisions or sign any legal documents. - Eat solid foods and drink liquids in smaller amounts than usual until normal appetite returns. If you should experience an upset stomach, liquids high in sugar content (soda, Romaine-Aid, non-acid juices) are recommended. - You can resume normal activities tomorrow. FOLLOW UP & RECOMMENDATIONS: -Follow-up with Dr. Mitchell as needed -Notify the doctor if you have any problems. -Repeat colonoscopy in 10 years. -Follow up with PCP. -Office number [phone].[facility] Work Phone: Chief Complaint BETSY SUMMERS is being seen for an annual follow-up of.BETSY SUMMERS is being seen for an annual follow-up of.BETSY SUMMERS is being seen for an annual follow-up of. Family History Unknown Family Member Name Dates Details Family history of coronary a rtery disease: Father(V17.3, Z82.49) Status:Active Family history of atrial fib rillation: Mother(V17.49, Z82.49) Status:Active Healthy adult: Mother, Siste r Status:Active Unknown Family Member Name Dates Details Family history of coronary a rtery disease: Father(V17.3, Z82.49) Status:Active Family history of atrial fib rillation: Mother(V17.49, Z82.49) Status:Active Healthy adult: Mother, Siste r Status:Active Unknown Family Member Name Dates Details Family history of coronary a rtery disease: Father(V17.3, Z82.49) Status:Active Family history of atrial fib rillation: Mother(V17.49, Z82.49) Status:Active Healthy adult: Mother, Siste r Status:Active Unknown Family Member Name Dates Details Family history of coronary a rtery disease: Father(V17.3, Z82.49) Status:Active Family history of atrial fib rillation: Mother(V17.49, Z82.49) Status:Active Healthy adult: Mother, Siste r Status:Active Relationship Condition Age at Onset Recorded Date/T mateusz Not Specified Atrial fibrillation Unknown father History of coronary artery stent placement Unknown Status post three ve ssel coronary artery bypass Unknown Relationship Condition Age at Onset Recorded Date/T mateusz Not Specified Atrial fibrillation Unknown father History of coronary artery stent placement Unknown Status post three ve ssel coronary artery bypass Unknown father Hypertension Unknown Heart disease Unknown Not Specified Heart disease Unknown natural son Hyperlipidemia Unknown Summary Purpose Advance Directives Advance Directive Response Recorded Date/ Time Advance Directives No September 8:31am Advance Directive Response Recorded Date/ Time Advance Directives No September 9:31am Chief Complaint and Reason for Visit Chief Complaint Screening Chief Complaint Screening Screening Chief Complaint Screening Screening Hyperlipidemia Z12.31 Chief Complaint R73.9 E78.5 E55.9 L7 0.0 M79.672 Chief Complaint R73.9 E78.5 E55.9 L7 0.0 Medicare Wellness M79.672 z12.31 Additional Source Comments INFORMATION SOURCE (unrecogn ized section and content) DATE CREATED AUTHOR 04/29/2022 [facility] DATE CREATED AUTHOR AUTHOR'S ORGANIZ ATION 02/02/2023 [facility] DATE CREATED AUTHOR AUTHOR'S ORGANIZ ATION 02/02/2023 [employer] DATE CREATED AUTHOR AUTHOR'S ORGANIZ ATION 11/08/2023 [facility] EPIC DATE CREATED AUTHOR AUTHOR'S ORGANIZ ATION 01/01/2024 [facility] REASON FOR VISIT (unrecogniz ed section and content) clinicalNo Informationclinic alRefillsClinicalClinicalRefillsmedicare wellness Care Teams (unrecognized sec tion and content) Team Status: Inactive Member Role Status Dates Kennedy Dodson , DO Primary Care Provider, Attending Provi lucretia Active Team Status: Inactive Member Role Status Dates Kennedy Dodson , DO Primary Care Provider Active Min Mitchell MD Attending Provider Active Team Status: Active Member Role Status Dates Kennedy Dodson , DO Primary Care Provider Active Team Status: Inactive Member Role Status Dates Kennedy Dodson , DO Primary Care Provider Active Veronica Koehler , DO Attending Provider Active Team Status: Inactive Member Role Status Dates Kennedy Dodson , DO Primary Care Provide r, Attending Provider Active Start: November 01, 2023 End: November 01, 2023 Team Status: Inactive Member Role Status Dates Kennedy Dodson , DO Primary Care Provide r, Attending Provider Active Start: November 01, 2023 End: November 01, 2023 Pratima Poole MD Other Provider Active Start : November 01, 2023 End: November 01, 2023 Team Status: Inactive Member Role Status Dates Kennedy Dodson , DO Primary Care Provide r, Attending Provider Active Start: November 08, 2023 End: November 08, 2023 Team Status: Inactive Member Role Status Dates Kennedy Dodson , DO Attending Provider Active Start: November 08, 2023 End: November 08, 2023 Team Status: Inactive Member Role Status Dates Kennedy Dodson , DO Primary Care Provider Active Sta rt: January 01, 2024 End: January 01, 2024 Veronica Koehler , Attending Provider Active Start: January 01, 2024 End: January 01, 2024 Goals (unrecognized section and content) Goals may be documented in a n alternate section FOR RECORDS PERTAINING TO PATIENTS WHO ARE OR HAVE BEEN ENROLLED IN A CHEMICAL DEPENDENCY/SUBSTANCEABUSE PROGRAM, SOME INFORMATION MAY BE OMITTED. This clinical summary was aggregated from multiple sources. Caution should be exercised in using it in the provision of clinical care. This summary normalizes information from multiple sources, and as a consequence, information in this document may materially change the coding, format and clinical context of patient data. In addition, data may be omitted in some cases. CLINICAL DECISIONS SHOULD BE BASED ON THE PRIMARY CLINICAL RECORDS. [facility]. provides no warranty or guarantee of the accuracy or completeness of information in this document.
== END 2024-01-02 13:07 | disposition home or self-care (01) ==
LOC: EC 13:06
PROVIDERS: PCP Family Medicine; Visit Provider Podiatrist Foot & Ankle Surgery
DX: M79.672 Pain in left foot (principal); S92.352A Displaced fracture of fifth metatarsal bone, left foot, initial encounter for closed fracture
CPT/HCPCS: 73630

== ENCOUNTER 2024-01-31 08:57 | Outpatient (OUT) | payer MEDICARE, SELFPAY ==
--- NOTE | 2024-01-31 | XR_ITS ---
The [address] [address] Patient Name: WARREN SUMMERS MRN: [id number] date: 1955 Sex: F Assigned Patient Location: Current Patient Location: Accession/Order Number: [id number] Exam Date: 01/31/2024 09:00 Report Date: 02/01/2024 06:35 At the request of: CARMEN SNOW Procedure: XR foot LT min 3V PROCEDURE: XR foot LT min 3V HISTORY: LEFT FOOT PAIN COMPARISON: XR foot left 01/02/2024 FINDINGS: BONES:Oblique fracture through distal 5th metatarsal diaphysis with slight medial displacement of the distal fragment; unchanged. No appreciable increase in density of the fracture line or callus formation at the margins. SOFT TISSUES:No visible soft tissue swelling. EFFUSION:None visible. OTHER: Negative. XR/XR foot LT min 3V IMPRESSION: 1. Stable mildly displaced fracture of the 5th metatarsal without radiographic evidence of bone healing. Electronically authenticated by: MARCIA LAMB Date: 02/01/2024 06:35
== END 2024-01-31 08:58 | disposition home or self-care (01) ==
LOC: EC 08:57
PROVIDERS: PCP Family Medicine; Visit Provider Podiatrist Foot & Ankle Surgery
DX: S92.352G Displaced fracture of fifth metatarsal bone, left foot, subsequent encounter for fracture with delayed healing (principal)
CPT/HCPCS: 73630

== ENCOUNTER 2024-04-24 09:09 | Outpatient (OUT) | payer MEDICARE, SELFPAY ==
--- NOTE | 2024-04-24 | XR_ITS ---
The [address] [address] Patient Name: WARREN SUMMERS MRN: [id number] date: 1955 Sex: F Assigned Patient Location: Current Patient Location: Accession/Order Number: [id number] Exam Date: 04/24/2024 09:10 Report Date: 04/25/2024 04:39 At the request of: CARMEN SNOW Procedure: XR foot LT min 3V PROCEDURE: XR foot LT min 3V HISTORY: LEFT FOOT PAIN COMPARISON: XR foot left 01/31/2024 FINDINGS: BONES:Increasing density of oblique fracture line of 5th metatarsal. SOFT TISSUES:No visible soft tissue swelling. EFFUSION:None visible. OTHER: Negative. XR/XR foot LT min 3V IMPRESSION: 1. Ongoing bone healing and stable alignment of the mildly displaced oblique 5th metatarsal fracture. Electronically authenticated by: MARCIA LAMB Date: 04/25/2024 04:39
== END 2024-04-24 09:10 | disposition home or self-care (01) ==
LOC: EC 09:09
PROVIDERS: PCP Family Medicine; Visit Provider Podiatrist Foot & Ankle Surgery
DX: M79.672 Pain in left foot (principal); S92.352D Displaced fracture of fifth metatarsal bone, left foot, subsequent encounter for fracture with routine healing
CPT/HCPCS: 73630